=== PATIENT | male | born 1940 | race Caucasian/White ===

== ENCOUNTER 2017-08-01 13:23 | Inpatient (IN) | payer MEDICARE, OTHER ==
[2017-08-01 13:46] LABS: Glucose,Whole Blood 132 mg/dL (75-99)
[2017-08-01] MEDS ORDERED: SODIUM CHLORIDE 0.9% 1,000 ML IV ONE (13:57)
--- NOTE | 2017-08-01 14:00 | ED ---
General Adult HPI - General Chief complaint: Altered Mental Status Stated complaint: trouble walking/altered Time Seen by Provider: 08/01/17 13:36 Source: patient, family, RN notes reviewed Mode of arrival: wheelchair Limitations: no limitations - History of Present Illness Initial comments: Patient is a pleasant 77-year-old male presenting to the emergency department with change in mental status. Onset of symptoms was yesterday. Patient has had episodes of decreased responsiveness. Patient has been confused. Family states at times have noticed left facial droop however none at this time. Patient had difficulty using his utensils for dinner as well as with breakfast this morning. - Related Data Home Medications Medication Instructions Recorded Confirmed Aspirin 325 mg PO DAILY 08/01/17 08/01/17 Folic Acid 1 mg PO DAILY 08/01/17 08/01/17 Lipase/Protease/Amylase [Creon Dr 1 cap PO TID 08/01/17 08/01/17 24,000 Units Capsule] Meloxicam [Mobic] 7.5 mg PO DAILY 08/01/17 08/01/17 Multivitamins, Thera [Multivitamin 1 tab PO DAILY 08/01/17 08/01/17 (formulary)] [place]-3/Dha/Epa/Fish Oil [Fish Oil 1 cap PO DAILY 08/01/17 08/01/17 500 mg Softgel] Allergies Allergy/AdvReac Type Severity Reaction Status Date / Time No Known Allergies Allergy Verified 08/01/17 15:02 Review of Systems ROS Statement: Those systems with pertinent positive or pertinent negative responses have been documented in the HPI. ROS Other: All systems not noted in ROS Statement are negative. Constitutional: Denies: fever Eyes: Denies: eye pain ENT: Denies: ear pain Respiratory: Denies: cough, dyspnea Cardiovascular: Denies: chest pain Endocrine: Denies: fatigue Gastrointestinal: Denies: abdominal pain Genitourinary: Denies: dysuria Musculoskeletal: Denies: back pain Skin: Denies: rash Neurological: Reports: confusion. Denies: headache, weakness Past Medical History Past Medical History: Osteoarthritis (OA) Additional Past Medical History / Comment(s): pancreas disorder History of Any Multi-Drug Resistant Organisms: None Reported Past Surgical History: Hernia Repair Additional Past Surgical History / Comment(s): toe amputation Past Psychological History: No Psychological Hx Reported Smoking Status: Former smoker Past Alcohol Use History: Rare Past Drug Use History: None Reported General Exam Limitations: no limitations General appearance: alert, in no apparent distress Head exam: Present: atraumatic Eye exam: Present: normal appearance, PERRL ENT exam: Present: normal oropharynx Neck exam: Present: normal inspection Respiratory exam: Present: normal lung sounds bilaterally Cardiovascular Exam: Present: regular rate, normal rhythm GI/Abdominal exam: Present: soft. Absent: tenderness Extremities exam: Present: normal inspection. Absent: pedal edema, calf tenderness Neurological exam: Present: alert, CN II-XII intact. Absent: motor sensory deficit Expanded Patient oriented to: Present: person, place. Absent: time (Oriented to year but not month) Speech: Present: fluid speech Cranial nerves: EOM's Intact: Normal, Facial Sensation: Normal Sensory exam: Upper Extremity Light Touch: Normal, Lower Extremity Light Touch: Normal Motor strength exam: RUE: 5, LUE: 5, RLE: 5, LLE: 5 Psychiatric exam: Present: normal affect, normal mood Skin exam: Present: normal color Course Vital Signs 08/01/17 13:24 Temperature 99.1 F Pulse Rate 69 Respiratory 16 Rate Blood Pressure 193/82 O2 Sat by Pulse 96 Oximetry EKG Findings - EKG Comments: EKG Findings:: Sinus rhythm 76. Premature atrial complex present. UT 140. QRS 86. QT 376. QTc 423. Left axis. Normal QRS. No acute ST change. Medical Decision Making - Medical Decision Making Patient reevaluated and resting comfortably in bed. Patient and family were updated on results and plan. Patient does have history of those systems with exposure. Case was discussed in detail with Dr. Joshi, who will admit for kumar Saldana. He does agree with computed tomography scan. He request consults with Dr. Sena from pulmonary and neurology. Normal saline 100. - Lab Data Result diagrams: 08/01/17 13:42 08/01/17 13:42 Lab Results 08/01/17 08/01/17 08/01/17 Range/Units 13:42 13:42 13:42 WBC 7.4 (3.8-10.6) k/uL RBC 4.38 (4.30-5.90) m/uL Hgb 13.2 (13.0-17.5) gm/dL Hct 36.5 L (39.0-53.0) % MCV 83.4 (80.0-100.0) fL MCH 30.1 (25.0-35.0) pg MCHC 36.1 (31.0-37.0) g/dL RDW 14.4 (11.5-15.5) % Plt Count 331 (150-450) k/uL Neutrophils % 67 % Lymphocytes % 23 % Monocytes % 7 % Eosinophils % 1 % Basophils % 0 % Neutrophils # 4.9 (1.3-7.7) k/uL Lymphocytes # 1.7 (1.0-4.8) k/uL Monocytes # 0.5 (0-1.0) k/uL Eosinophils # 0.1 (0-0.7) k/uL Basophils # 0.0 (0-0.2) k/uL PT (9.0-12.0) sec INR (<1.2) APTT (22.0-30.0) sec Sodium 124 L (137-145) mmol/L Potassium 4.8 (3.5-5.1) mmol/L Chloride 89 L (98-107) mmol/L Carbon Dioxide 22 (22-30) mmol/L Anion Gap 13 mmol/L BUN 17 (9-20) mg/dL Creatinine 0.70 (0.66-1.25) mg/dL Est GFR (MDRD) Af Amer >60 (>60 ml/min/1.73 sqM) Est GFR (MDRD) Non-Af >60 (>60 ml/min/1.73 sqM) Glucose 125 H (74-99) mg/dL POC Glucose (mg/dL) (75-99) mg/dL POC Glu Store Merchandiser ID Calcium 9.4 (8.4-10.2) mg/dL Total Bilirubin 0.7 (0.2-1.3) mg/dL AST 69 H (17-59) U/L ALT 46 (21-72) U/L Alkaline Phosphatase 112 (38-126) U/L Total Creatine Kinase 142 (55-170) U/L CK-MB (CK-2) 11.4 H* (0.0-2.4) ng/mL CK-MB (CK-2) Rel Index 8.0 Troponin I <0.012 (0.000-0.034) ng/mL Total Protein 7.3 (6.3-8.2) g/dL Albumin 4.2 (3.5-5.0) g/dL 08/01/17 08/01/17 Range/Units 13:42 13:44 WBC (3.8-10.6) k/uL RBC (4.30-5.90) m/uL Hgb (13.0-17.5) gm/dL Hct (39.0-53.0) % MCV (80.0-100.0) fL MCH (25.0-35.0) pg MCHC (31.0-37.0) g/dL RDW (11.5-15.5) % Plt Count (150-450) k/uL Neutrophils % % Lymphocytes % % Monocytes % % Eosinophils % % Basophils % % Neutrophils # (1.3-7.7) k/uL Lymphocytes # (1.0-4.8) k/uL Monocytes # (0-1.0) k/uL Eosinophils # (0-0.7) k/uL Basophils # (0-0.2) k/uL PT 10.5 (9.0-12.0) sec INR 1.0 (<1.2) APTT 23.7 (22.0-30.0) sec Sodium (137-145) mmol/L Potassium (3.5-5.1) mmol/L Chloride (98-107) mmol/L Carbon Dioxide (22-30) mmol/L Anion Gap mmol/L BUN (9-20) mg/dL Creatinine (0.66-1.25) mg/dL Est GFR (MDRD) Af Amer (>60 ml/min/1.73 sqM) Est GFR (MDRD) Non-Af (>60 ml/min/1.73 sqM) Glucose (74-99) mg/dL POC Glucose (mg/dL) 132 H (75-99) mg/dL POC Glu Store Merchandiser ID Huma Lopez Calcium (8.4-10.2) mg/dL Total Bilirubin (0.2-1.3) mg/dL AST (17-59) U/L ALT (21-72) U/L Alkaline Phosphatase (38-126) U/L Total Creatine Kinase (55-170) U/L CK-MB (CK-2) (0.0-2.4) ng/mL CK-MB (CK-2) Rel Index Troponin I (0.000-0.034) ng/mL Total Protein (6.3-8.2) g/dL Albumin (3.5-5.0) g/dL - Radiology Data Radiology results: report reviewed (Computed tomography scan the brain shows atrophy. Sinus disease.), image reviewed (Chest x-ray shows pleural based densities right upper outer lung field.) Disposition Clinical Impression: Hyponatremia, Altered mental status Disposition: ADMITTED IP TO THIS HOSP Condition: Serious Referrals: Sotrm Calvin MD [Primary Care Provider] - 1-2 days Decision Time: 15:37
[2017-08-01 14:08] LABS: Basophils % (A) 0 %; CH 29.1; Eosinophils # (A) 0.1 k/uL (0-0.7); Eosinophils % (A) 1 %; HCT 36.5 % (39.0-53.0); HDW 2.61; HGB 13.2 gm/dL (13.0-17.5); Luc # (Auto) 0.16; Luc % (Auto) 2; Lymphocytes # (A) 1.7 k/uL (1.0-4.8); Lymphocytes % (A) 23 %; MCH 30.1 pg (25.0-35.0); MCHC 36.1 g/dL (31.0-37.0); MCV 83.4 fL (80.0-100.0); Mean Platelet Volume 6.2; Monocytes # (A) 0.5 k/uL (0-1.0); Monocytes % (A) 7 %; Neutrophils # (A) 4.9 k/uL (1.3-7.7); Neutrophils % (A) 67 %; RBC 4.38 m/uL (4.30-5.90); RDW 14.4 % (11.5-15.5); WBC 7.4 k/uL (3.8-10.6); WBC (Perox) 7.21
[2017-08-01 14:17] LABS: Partial Thromboplastin Time 23.7 sec (22.0-30.0); Prothrombin Time 10.5 sec (9.0-12.0)
[2017-08-01 14:21] LABS: ALT 46 U/L (21-72); AST 69 U/L (17-59); Alkaline Phosphatase 112 U/L (38-126); Anion Gap 13 mmol/L; Blood Urea Nitrogen 17 mg/dL (9-20); Calcium 9.4 mg/dL (8.4-10.2); Carbon Dioxide 22 mmol/L (22-30); Chloride 89 mmol/L (98-107); Glucose 125 mg/dL (74-99); Non-African American GFR(MDRD) >60 (>60 ml/min/1.73 sqM); Potassium 4.8 mmol/L (3.5-5.1); Sodium 124 mmol/L (137-145); Total Bilirubin 0.7 mg/dL (0.2-1.3); Total Protein 7.3 g/dL (6.3-8.2)
[2017-08-01 14:31] LABS: Creatine Kinase 142 U/L (55-170)
--- NOTE | 2017-08-01 14:41 | CT ---
EXAMINATION TYPE: CT brain wo con DATE OF EXAM: 08/01/2017 COMPARISON: NONE INDICATION: Patient shows signs of altered mental status. DLP: 1064 mGycm, Automated exposure control for dose reduction was used. CONTRAST: None CT of the brain is performed utilizing 3 mm thick sections through the posterior fossa and 3 mm thick sections through the remaining calvarium. Study is performed within 24 hours of arrival to the hosp ital. No abnormal hyperdensity is present to suggest an acute intracranial hemorrhage. No mass lesion is evident. No acute infarcts are evident. Mild periventricular white matter hypodensity is present, likely on th e basis of chronic white matter ischemic changes Ventricles and sulci are prominent for the patient age. Mucosal thickening is through anterior mid ethmoid air cells. Frontal sinuses are opacified. Sphenoid sinuses are clear. Maxillary sinuses are out of the [id number]. Mastoid air cells are clear IMPRESSIONS: 1. Atrophy. 2. Paranasal sinus disease discussed above
[2017-08-01 14:44] LABS: Troponin I <0.012 ng/mL (0.000-0.034)
[2017-08-01 14:46] LABS: Creatine Kinase MB 11.4 ng/mL (0.0-2.4)
--- NOTE | 2017-08-01 14:56 | XR ---
EXAMINATION TYPE: XR chest 2V DATE OF EXAM: 08/01/2017 COMPARISON: NONE INDICATION: Altered mental status TECHNIQUE: Frontal and lateral views of the chest are obtained. FINDINGS: The heart size is normal. The pulmonary vasculature is normal. There are pleural nodularities in the right upper outer lung field measuring 5.1 and 2.[address] chest is recommended for additional evaluation.. IMPRESSION: 1. Pleural-based densities in the right upper outer lung field. This could be pleural-based nodules o r fluid collections. CT of the chest is recommended. Neoplasm is not excluded at this time.
[2017-08-01] MEDS ORDERED: NALOXONE 0.4 MG/ML 1 ML VIAL IV PRN (15:37)
[2017-08-01] MEDS ORDERED: RX INFO: IV CONTRAST WAS GIVEN 1 EACH MISC MISCELLANE PRN (15:39)
[2017-08-01] MEDS ORDERED: amLODIPine 2.5 MG TAB PO STA (16:17)
[2017-08-01] MEDS: SODIUM CHLORIDE 0.9% 1,000 ML IV SCH (16:31)
--- NOTE | 2017-08-01 16:42 | CT ---
EXAMINATION TYPE: CT chest w con DATE OF EXAM: 08/01/2017 COMPARISON: Chest x-ray 08/01/2017 HISTORY: Patient has no chest complaints at time of study. Follow up to CXR done today. CT DLP: 319.9 mGycm, Automated exposure control for dose reduction was used. CONTRAST: Performed injected with 100 mL of Omnipaque 300. TECHNIQUE: Axial images were obtained at 5 mm thick sections. Reconstructed images are reviewed on [employer] computer in the coronal plane. FINDINGS: Portion of the thyroid visualized is normal. Adjacent to the right lobe thyroid is a 3.0 cm lymph node which may has some compression and displacement of the jugular vein.. A superior mediasti nal lymph node is present measuring 1.9 cm. There is an enlarged lymph node or mass in the pretrachea l space measuring 3.0 x 4.1 cm. Image 19 series 3. Mediastinal shotty lymph nodes are present adjacen t to the aortic arch. A right suprahilar lymph node measures 1.9 cm. Enlarged right axillary lymph no cee are present. Corresponding to the mass is identified on the chest x-ray are large intraparenchymal nodular densiti es. On lung windows these measure 3.2 x 2.7 cm, series 4 image 20 and 4.6 x 4.8 cm, series 4 image 14 . A metastatic lesion should be considered. The ascending aorta diameter at the level of the main pulmonary artery is 3.6 cm. The main pulmonary artery diameter at the bifurcation is 3.4 cm. Coronary artery calcification is noted. Limited CT sections are obtained through the upper abdomen. There is a cyst on the lateral posterior mid right kidney measuring 4.1 cm. The left adrenal gland is thickened at 2.8 cm. The right adrenal g land has a nodule along the posterior medial tip measuring 1.9 cm. These areas are suspicious for met astatic disease. Calcified granuloma within the spleen. IMPRESSIONS: 1. Two right apical parenchymal lesions extending to the pleural margins suspicious for neoplasm. 2. Multiple enlarged mediastinal lymph nodes including pretracheal space, right suprahilar, superior mediastinal lymph nodes. Additional enlarged lymphadenopathy is within the right axillary region and right supraclavicular region. 3. Workup for suspected metastatic lesions is recommended. Primary is unclear based on this study.
[2017-08-01] MEDS: LOSARTAN 50 MG TAB PO SCH (21:01)
[2017-08-01] MEDS: LIPASE 5,000/PROTEASE 17,000/AMYLASE 27,0000 PO SCH (21:01)
[2017-08-01 21:23] LABS: Appearance,Urine Clear (Clear); Bilirubin,Urine Negative (Negative); Glucose,Urine (UA) Negative (Negative); Ketones,Urine 1+ (Negative); Leukocyte Esterase,Urine Negative (Negative); Nitrite,Urine Negative (Negative); PH, Urine 6.5 (5.0-8.0); Particle Count 747; Protein,Urine Negative (Negative); RBC,Urine 3 /hpf (0-5); Specific Gravity,Urine 1.033 (1.001-1.035); UA Billing (MACRO vs. MICRO) MICRO; Urobilinogen,Urine <2.0 mg/dL (<2.0); WBC,Urine 1 /hpf (0-5)
[2017-08-01 21:48] LABS: Potassium,Urine Random 28.5 mmol/L
[2017-08-02] MEDS: SODIUM CHLORIDE 0.9% 1,000 ML IV SCH ×2 (05:58→12:33)
[2017-08-02 06:12] LABS: Anion Gap 10 mmol/L; Blood Urea Nitrogen 12 mg/dL (9-20); Calcium 9.3 mg/dL (8.4-10.2); Carbon Dioxide 21 mmol/L (22-30); Chloride 95 mmol/L (98-107); Glucose 118 mg/dL (74-99); Non-African American GFR(MDRD) >60 (>60 ml/min/1.73 sqM); Potassium 4.2 mmol/L (3.5-5.1); Sodium 126 mmol/L (137-145)
[2017-08-02] MEDS: LOSARTAN 50 MG TAB PO SCH (08:57)
[2017-08-02] MEDS: LIPASE 5,000/PROTEASE 17,000/AMYLASE 27,0000 PO SCH ×3 (08:58→20:39)
[2017-08-02] MEDS ORDERED: NON-FORMULARY DRUG (Omega-3/Dha/Epa/Fish Oil [Fish Oil 500 Mg Softgel] 1 CAP) PO SCH (09:00)
[2017-08-02] MEDS ORDERED: ASPIRIN 325 MG TAB PO SCH (09:00)
[2017-08-02] MEDS: FOLIC ACID 1 MG TAB PO SCH (12:32)
[2017-08-02] MEDS: hydrALAZINE HCL 20 MG/ML 1 ML VIAL IVP PRN (12:32)
[2017-08-02] MEDS: MULTIVITAMINS, THERA 1 EACH TAB PO SCH (12:32)
--- NOTE | 2017-08-02 13:51 | P.HPIM ---
History of Present Illness H&P Date: 08/02/17 Chief Complaint: Mental status change This is a 77-year-old male patient of Dr. Storm Calvin with a past medical history of osteoarthritis, atraumatic insufficiency. Patient has history that he was walking across a parking lot and suddenly blacked out. Patient denies any chest pain or abdominal pain. He denies any dysuria. No diarrhea. He denies any injury or headache when he fell. He states his appetite has been okay. He denies any weight loss. Patient is a poor historian and is noted that this was not noted in the ER report. Patient presented to [facility] emergency center due to change in mental status that started Tuesday. Patient apparently had decreased episodes of responsiveness and confusion. Family noticed a left facial droop at some point but none was present at the time of presentation. Patient had difficulty using his utensils to eat his dinner as well as breakfast yesterday morning. EKG was in normal sinus rhythm with no acute ST changes. White count was normal. Sodium was down to 124. Troponin was negative and blood sugar was 132. Patient underwent CAT scan of the brain that showed atrophy and paranasal sinus disease. CAT scan of the chest showed 2 right apical parenchymal lesions extending to the pleural margin suspicious for neoplasm. Multiple enlarged mediastinal lymph nodes and additional lymphadenopathy in the right axilla region and right supraclavicular lesion. Workup for suspected metastatic lesions as recommended. Patient was started on IV fluids 0.9 normal saline at 100 mL per hour and admitted to the selective care unit. Consults in place for neurology and Dr. CHERELLE Sena. Case was discussed with Dr. CHERELLE Sena and radiology. Patient will undergo 18 right neck mass biopsy tomorrow. Lovenox placed on hold. Nephrology consult has also been added for hyponatremia. Review of Systems All systems: negative Constitutional: Denies anorexia, Denies chills, Denies fever, Denies poor appetite, Denies sweats, Denies weight loss Eyes: denies blurred vision, denies pain Ears, nose, mouth and throat: Denies headache, Denies sore throat Cardiovascular: Reports syncope, Denies chest pain, Denies decreased exercise tolerance, Denies dyspnea on exertion, Denies edema, Denies leg edema, Denies lightheadedness, Denies shortness of breath Respiratory: Denies cough, Denies cough with sputum, Denies dyspnea, Denies excessive sputum, Denies hemoptysis, Denies home oxygen, Denies wheezing Gastrointestinal: Denies abdominal pain, Denies diarrhea, Denies nausea, Denies vomiting Genitourinary: Denies dysuria Musculoskeletal: Denies myalgias Integumentary: Denies pruritus, Denies rash Neurological: Reports change in mentation, Reports confusion, Denies numbness, Denies weakness Psychiatric: Denies anxiety, Denies depression Endocrine: Denies fatigue, Denies weight change Past Medical History Past Medical History: Osteoarthritis (OA) Additional Past Medical History / Comment(s): pancreatic insufficiency History of Any Multi-Drug Resistant Organisms: None Reported Past Surgical History: Hernia Repair Additional Past Surgical History / Comment(s): Third left toe amputated many years ago for infection. Past Psychological History: No Psychological Hx Reported Smoking Status: Former smoker Past Alcohol Use History: Rare Additional Past Alcohol Use History / Comment(s): Quit smoking one year ago. He was smoking 1 or more ppd and sometimes pipe. Possible alcohol abuse in the remote past. Rare intake at this time. He lives at home with his . He does not have ambulatory devices, oxygen per nebulizer at home. Past Drug Use History: None Reported - Past Family History Father Additional Family Medical History / Comment(s): Father at age 63 from a myocardial infarction. Mother Additional Family Medical History / Comment(s): Mother in her 60s and patient does not know her medical history or cause of . Brother(s) Additional Family Medical History / Comment(s): Patient does not have any brothers or sisters. Patient's one daughter and 4 sons with no major medical problems. Medications and Allergies Home Medications Medication Instructions Recorded Confirmed Type Aspirin 325 mg PO DAILY 08/01/17 08/01/17 History Folic Acid 1 mg PO DAILY 08/01/17 08/01/17 History Lipase/Protease/Amylase [Creon Dr 1 cap PO TID 08/01/17 08/01/17 History 24,000 Units Capsule] Meloxicam [Mobic] 7.5 mg PO DAILY 08/01/17 08/01/17 History Multivitamins, Thera [Multivitamin 1 tab PO DAILY 08/01/17 08/01/17 History (formulary)] [place]-3/Dha/Epa/Fish Oil [Fish Oil 1 cap PO DAILY 08/01/17 08/01/17 History 500 mg Softgel] Allergies Allergy/AdvReac Type Severity Reaction Status Date / Time gluten Allergy Diarrhea Verified 08/01/17 16:58 Physical Exam Vitals: Vital Signs Temp Pulse Pulse Resp BP BP BP 08/02/17 08:55 98.3 F 68 16 167/75 08/02/17 08:40 08/02/17 04:00 72 16 08/02/17 03:38 97.0 F L 72 16 164/79 08/02/17 00:00 97.4 F L 74 16 140/79 08/01/17 20:00 97.1 F L 72 17 218/97 171/78 08/01/17 18:33 98.2 F 75 18 166/77 08/01/17 16:49 97.8 F 75 18 185/98 08/01/17 16:26 185/98 08/01/17 16:09 97.8 F 75 18 186/102 08/01/17 15:59 75 18 172/99 08/01/17 13:24 99.1 F 69 16 193/82 Pulse Ox 08/02/17 08:55 98 08/02/17 08:40 98 08/02/17 04:00 08/02/17 03:38 96 08/02/17 00:00 95 08/01/17 20:00 96 08/01/17 18:33 95 08/01/17 16:49 96 08/01/17 16:26 08/01/17 16:09 96 08/01/17 15:59 98 08/01/17 13:24 96 Intake and Output 08/01/17 08/02/17 08/02/17 22:59 06:59 14:59 Intake Total 100 240 Output Total 650 300 Balance -550 -300 240 Intake: Oral 100 240 Output: Urine 650 300 Other: Voiding Method Toilet Toilet Urinal Urinal # Voids 1 # Bowel Movements 0 Weight 71.1 kg 69.5 kg Gen: This is a 77-year-old male sitting up in a chair at bedside and appears to be in no acute distress. HEENT: Head is atraumatic, normocephalic. Pupils equal, round. Sclerae is anicteric. NECK: Supple. No JVD. No lymphadenopathy. No thyromegaly. LUNGS: Clear to auscultation. No wheezes or rhonchi. No intercostal retractions. HEART: Regular rate and rhythm. No murmur. ABDOMEN: Soft. Bowel sounds are present. No masses. No tenderness. EXTREMITIES: No pedal edema. No calf tenderness. NEUROLOGICAL: Patient is awake, alert and oriented x2. Cranial nerves 2 through 12 are grossly intact. Results CBC & Chem 7: 08/01/17 13:42 08/02/17 05:45 Labs: Abnormal Lab Results - Last 24 Hours (Table) 08/01/17 08/01/17 08/01/17 Range/Units 13:42 13:42 13:42 Hct 36.5 L (39.0-53.0) % Sodium 124 L (137-145) mmol/L Chloride 89 L (98-107) mmol/L Carbon Dioxide (22-30) mmol/L Creatinine (0.66-1.25) mg/dL Glucose 125 H (74-99) mg/dL POC Glucose (mg/dL) (75-99) mg/dL Osmolality (280-301) mosm/kg AST 69 H (17-59) U/L CK-MB (CK-2) 11.4 H* (0.0-2.4) ng/mL Ur Specific [place] (1.001-1.035) Urine Ketones (Negative) Urine Blood (Negative) 08/01/17 08/01/17 08/01/17 Range/Units 13:42 13:44 15:40 Hct (39.0-53.0) % Sodium (137-145) mmol/L Chloride (98-107) mmol/L Carbon Dioxide (22-30) mmol/L Creatinine (0.66-1.25) mg/dL Glucose (74-99) mg/dL POC Glucose (mg/dL) 132 H (75-99) mg/dL Osmolality 259 L (280-301) mosm/kg AST (17-59) U/L CK-MB (CK-2) (0.0-2.4) ng/mL Ur Specific [place] 1.037 H (1.001-1.035) Urine Ketones (Negative) Urine Blood (Negative) 08/01/17 08/02/17 Range/Units 21:00 05:45 Hct (39.0-53.0) % Sodium 126 L (137-145) mmol/L Chloride 95 L (98-107) mmol/L Carbon Dioxide 21 L (22-30) mmol/L Creatinine 0.60 L (0.66-1.25) mg/dL Glucose 118 H (74-99) mg/dL POC Glucose (mg/dL) (75-99) mg/dL Osmolality (280-301) mosm/kg AST (17-59) U/L CK-MB (CK-2) (0.0-2.4) ng/mL Ur Specific [place] (1.001-1.035) Urine Ketones 1+ H (Negative) Urine Blood Trace H (Negative) Thrombosis Risk Factor Assmnt - DVT/VTE Prophylaxis DVT/VTE Prophylaxis: Pharmacologic Prophylaxis ordered - Choose All That Apply Any of the Below Risk Factors Present?: Yes Other Risk Factors: Yes Each Risk Factor Represents 3 Points: Age 75 years or older Thrombosis Risk Factor Assessment Total Risk Factor Score: 3 Thrombosis Risk Factor Assessment Level: Moderate Risk Assessment and Plan Plan: 1. Metabolic encephalopathy most likely secondary to hyponatremia presenting with sodium of 124. Continue IV fluids 0.9 normal saline at 100 mL per hour. Continue to monitor sodium. Consult in place with neurology. Continue aspirin daily 2. Hyponatremia of unclear etiology possibly secondary to SIADH secondary to possible lung cancer. Continue as in #1. 3. Pleural lesions concern for neoplasm and metastatic disease. Consult with Dr. CHERELLE Sena. CAT scan guided right neck mass biopsy ordered. 4. New onset hypertension. Continue Cozaar 100 mg daily. Hydralazine as needed for blood pressure greater than 160. 5. Pancreatic insufficiency. Continue Zenpep, folic acid and multivitamin. 6. DVT prophylaxis. Lovenox will be started tomorrow after neck biopsy. 7. Gastric intestinal prophylaxis. Pepcid. Patient will be admitted to the hospital for a minimum of 2 night stay. Discharge plan: To be determined. PT and OT ordered Impression and plan of care have been directed as dictated by the signing physician. Aubree Monroe nurse practitioner acting as scribe for signing physician.
--- NOTE | 2017-08-02 14:02 | CONS ---
CONSULTATION Balbir De La Paz is a 77-year-old male, who presented to the ED at [facility] with mental status changes. He had been feeling dizzy, was pleasantly confused and subsequently came into the ED for further evaluation. A sodium was done at that time, it showed it to be a sodium of 124. He was admitted. Chest x-ray and CAT scan of the chest were done which showed evidence of 2 masses in the right upper lobe along with some right hilar adenopathy. Patient denies any fever, chills or rigors. Denies any hemoptysis, denies any wheezing. PAST MEDICAL HISTORY: Positive for left toe amputation due to infection, history of pancreatic insufficiency, history of osteoarthritis, no clear history of asthma, COPD or coronary artery disease. FAMILY HISTORY: Negative for cancer. SOCIAL HISTORY: Patient smoked a pack of cigarettes per day. He quit smoking 4 to 5 months ago. 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 REVIEW OF SYSTEMS: Noncontributory. Medications prior to admission were aspirin, folic acid, Creon, meloxicam, multivitamin and omega-3 fatty acids in the form of fish oil. PHYSICAL EXAMINATION: He was sitting in a chair. He was pleasantly confused. His blood pressure was 186/88, respiratory rate of 16, pulse rate of 70, temperature 98.3, O2 sat on room is 96%. HEENT reveals pupils that are equal. No jugular venous distention. Chest is clear. Cardiovascular system reveals an S1, S2. Abdomen is soft. There is no pedal edema. There is evidence of amputation of the toe to the left lower extremity. Sodium is 126, potassium 4.2, chloride 95, bicarb 21, BUN 12, creatinine 0.6, glucose 118. CT scan of the chest was personally reviewed. The images were reconstructed using virtual bronchoscopy software upon virtual bronchoscopy. There cee not seem to be any endobronchial lesions. There are multiple enlarged lymph nodes in the pretracheal space, right suprahilar and superior mediastinal. There is enlarged adenopathy in the right axillary region in the right supraclavicular area with evidence of metastatic disease in the right adrenal gland. There are two large intraparenchymal densities, one is 3.2 x 2.7 cm, the other 4.6 x 4.8, and they seemed to be pleural- based. IMPRESSION: 1. 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 2. Metabolic encephalopathy secondary to hyponatremia. 3. Lung masses with metastatic disease. Most likely secondary to lung cancer in somebody who has been exposed to asbestos. At this point in time from a pulmonary standpoint, would recommend having the patient evaluated by Oncology, keep him on relatively hypertonic saline, which in this case agree with his current IV fluids of normal saline. Control his blood pressure, set him up for a CT-guided needle biopsy off the lymph nodes or the mass. His prognosis guarded. He and his family were counseled regarding his condition and this approach. Depending on how he does, we shall make further changes to his care. I did discuss my thoughts with his physician, Dr. Juarez. HOMERO / MEHRAN: [id number] /
--- NOTE | 2017-08-02 15:39 | US ---
EXAMINATION TYPE: US discontinued FNA panel DATE OF EXAM: 08/02/2017 COMPARISON: CT scan 08/01/2017 HISTORY: Neck mass FINDINGS: Right sided solid neck masses: 1)4.6 x 2.8 x 2.7 cm 2) 2.1 x 2.4 x 1.5 cm 3)0.6 x 0.5 x 0.5 cm IMPRESSION: 1. There are 3 right-sided neck masses the largest measuring 4.6 cm compatible with adenopathy. Findi ngs are concordant with the CT abnormality.
[2017-08-02] MEDS ORDERED: SODIUM CHLORIDE 0.9% 1,000 ML IV SCH (15:45)
[2017-08-02] MEDS ORDERED: amLODIPine 5 MG TAB PO STA (16:28)
[2017-08-02] MEDS ORDERED: METOPROLOL TARTRATE 50 MG TAB PO STA (19:13)
[2017-08-02] MEDS ORDERED: HEPARIN SODIUM,PORCINE 5,000 UNIT/ML 1 ML VIAL IV ONE (19:42)
[2017-08-02] MEDS ORDERED: HEPARIN SODIUM,PORCINE 5,000 UNIT/ML 1 ML VIAL IV PRN (19:42)
[2017-08-02 20:22] LABS: Basophils % (A) 0 %; CH 29.1; CHCM 34.1; Eosinophils # (A) 0.2 k/uL (0-0.7); Eosinophils % (A) 2 %; HCT 38.7 % (39.0-53.0); HDW 2.56; HGB 13.3 gm/dL (13.0-17.5); Luc % (Auto) 2; Lymphocytes # (A) 1.9 k/uL (1.0-4.8); Lymphocytes % (A) 22 %; MCH 29.6 pg (25.0-35.0); MCHC 34.5 g/dL (31.0-37.0); MCV 85.8 fL (80.0-100.0); Mean Platelet Volume 6.2; Monocytes # (A) 0.7 k/uL (0-1.0); Monocytes % (A) 9 %; Neutrophils # (A) 5.3 k/uL (1.3-7.7); Neutrophils % (A) 64 %; RBC 4.51 m/uL (4.30-5.90); RDW 14.5 % (11.5-15.5); WBC 8.3 k/uL (3.8-10.6); WBC (Perox) 8.07
[2017-08-02 20:27] LABS: INR 1.1 (<1.2); Partial Thromboplastin Time 25.2 sec (22.0-30.0); Prothrombin Time 11.1 sec (9.0-12.0)
[2017-08-02] MEDS: HEPARIN SODIUM,PORCINE/D5W PMX 25,000 UNIT in DEXTROSE/WATER 1 500ML.BAG IV SCH (20:31)
--- NOTE | 2017-08-02 21:14 | CONS ---
CONSULTATION DATE OF CONSULTATION: 08/02/2017 REASON FOR CONSULT: Hyponatremia. HISTORY OF PRESENT ILLNESS: Patient is a 77-year-old male who was admitted to the hospital for change in mentation. He had episodes of decreased responsiveness per the family who brought him. He was noted to have a serum sodium of 124 mEq/L. We do not have any previous labs. The patient is maintained on normal saline. His repeat sodium was 126. He did have a chest CT which showed right lung apical lesions with mediastinal lymphadenopathy. The patient's mentation seems to have improved. There is no prior history of hyponatremia. He has not started any new medications recently. PAST MEDICAL HISTORY: 1. Hypertension. 2. Osteoarthritis. PAST SURGICAL HISTORY: 1. Hernia repair. 2. Third left toe amputation many years ago. SOCIAL HISTORY: Patient quit smoking about 3 years ago. No history of drug abuse. MEDICATIONS: Medications at home included: 1. Aspirin. 2. Mobic. 3. Multivitamin. 4. Fish oil. 5. Folic acid. ALLERGIES: ALLERGIES include GLUTEN. EXAMINATION: On examination, patient is comfortable, awake. He is not in any acute distress. Blood pressure is 157/75, heart rate 68 per minute. Patient is afebrile. EXAMINATION OF THE HEART: S1, S2. EXAMINATION OF LUNGS: Bilateral breath sounds are heard. ABDOMEN: Soft, non-tender. Examination of lower extremities shows no significant edema. EXTRACORPOREAL TECHNICIAN exam is grossly intact. LAB: Sodium 126, potassium 4.2, BUN 12, serum creatinine 0.6. Hemoglobin 13.2 g/dL. Calcium was 9.4. Urine osmolality was 422. ASSESSMENT: 1. Hyponatremia which is euvolemic, most likely secondary to SIADH. Patient is maintained on normal saline. I am afraid his sodium will drop. We will check a STAT sodium level now and then discontinue the saline if it is lower. Patient may need demeclocycline now with fluid restriction to maintain his sodium level, given the fact that he has an underlying lung mass and possibly underlying lung cancer. 2. Right lung lesions, currently being worked up. 3. Hypertension. Blood pressure is elevated. Patient is maintained on Cozaar, which we can continue. PLAN: Decrease IV fluids. Check STAT serum sodium. Will discontinue IV fluids if the serum sodium has dropped further. Patient may need to be started on demeclocycline to help with the SIADH. Thank you for this consultation. Will continue to follow the patient with you during his hospitalization. MMCHUCKIEL / IJN: [id number] /
--- NOTE | 2017-08-03 08:41 | P.CRDCN ---
History of Present Illness Consult date: 08/03/17 Consult reason: atrial fibrillation History of present illness: 77-year-old gentleman with history of hypertension is admitted to hospital with confusion. He has hyponatremia cervical lymph nodes. He developed atrial fibrillation while in the hospital for which cardiology had been consulted. Patient denies chest pain and difficulty in breathing but he is somewhat confused and a poor historian. There is no known history of atrial fibrillation. Denies coronary artery disease or congestive heart Patient is in atrial fibrillation with controlled ventricular rate. He is on a beta estella. He is on intravenous heparin. I will leave him on beta blockers for rate control and heparin for anticoagulation at this time we'll await the biopsy results. We will decide on long-term anticoagulation once we know whether he has metastatic cancer of not. Review of Systems ROS unobtainable: due to mental status (I reviewed the chart reviewed and the consultations other than the confusion there are no other pertinent symptoms) Past Medical History Past Medical History: Hypertension, Osteoarthritis (OA) Additional Past Medical History / Comment(s): pancreatic insufficiency History of Any Multi-Drug Resistant Organisms: None Reported Past Surgical History: Hernia Repair Additional Past Surgical History / Comment(s): Third left toe amputated many years ago for infection. Past Psychological History: No Psychological Hx Reported Smoking Status: Former smoker Past Alcohol Use History: Rare Additional Past Alcohol Use History / Comment(s): Quit smoking one year ago. He was smoking 1 or more ppd and sometimes pipe. Possible alcohol abuse in the remote past. Rare intake at this time. He lives at home with his . He does not have ambulatory devices, oxygen per nebulizer at home. Past Drug Use History: None Reported - Past Family History Father Additional Family Medical History / Comment(s): Father at age 63 from a myocardial infarction. Mother Additional Family Medical History / Comment(s): Mother in her 60s and patient does not know her medical history or cause of . Brother(s) Additional Family Medical History / Comment(s): Patient does not have any brothers or sisters. Patient's one daughter and 4 sons with no major medical problems. Medications and Allergies Home Medications Medication Instructions Recorded Confirmed Type Aspirin 325 mg PO DAILY 08/01/17 08/01/17 History Folic Acid 1 mg PO DAILY 08/01/17 08/01/17 History Lipase/Protease/Amylase [Creon Dr 1 cap PO TID 08/01/17 08/01/17 History 24,000 Units Capsule] Meloxicam [Mobic] 7.5 mg PO DAILY 08/01/17 08/01/17 History Multivitamins, Thera [Multivitamin 1 tab PO DAILY 08/01/17 08/01/17 History (formulary)] [place]-3/Dha/Epa/Fish Oil [Fish Oil 1 cap PO DAILY 08/01/17 08/01/17 History 500 mg Softgel] Allergies Allergy/AdvReac Type Severity Reaction Status Date / Time gluten Allergy Diarrhea Verified 08/01/17 16:58 Physical Exam Vitals: Vital Signs Temp Pulse Resp BP BP Pulse Ox 08/03/17 04:00 97 F L 85 18 137/76 93 L 08/02/17 23:45 98.6 F 92 18 124/78 95 08/02/17 20:00 96.9 F L 114 H 18 128/80 95 08/02/17 15:30 98 F 70 16 162/74 97 08/02/17 11:45 70 16 186/88 96 08/02/17 08:55 98.3 F 68 16 167/75 98 08/02/17 08:45 16 08/02/17 08:40 98 Intake and Output 08/02/17 08/03/17 08/03/17 22:59 06:59 14:59 Intake Total 1040 103.972 240 Output Total 300 700 Balance 740 -596.028 240 Intake: IV 800 Sodium Chloride 0.9% 1, 800 000 ml @ 50 mls/hr IV . Q20H MENG Rx#:[id number] Intake, IV Titration 103.972 Amount Heparin Sodium,Porcine/ 103.972 D5w Pmx 25,000 unit In Dextrose/Water 1 500ml. bag @ 12 UNITS/KG/HR 16. 68 mls/hr IV .Q24H MENG Rx #:[id number] Oral 240 240 Output: Urine 300 700 Other: Voiding Method Toilet Toilet Urinal Urinal # Voids 2 1 Weight 71.9 kg General: The patient is awake and alert, in no distress, and does not appear acutely ill. Skin: Skin is warm and dry and no rashes or lesions are noted. Eye: Pupils are equal, round and reactive to light, extra-ocular movements are intact; there is normal conjunctiva bilaterally. Ears, nose, mouth and throat: There are moist mucous membranes and no oral lesions. Neck: The neck is supple, there is no tenderness or JVD. Cardiovascular: [ irregular.][ No murmur, rub or gallop is appreciated.] Respiratory: Lungs are clear to auscultation, respirations are non-labored, breath sounds are equal. Gastrointestinal: Soft, non-distended, non-tender abdomen without masses or organomegaly noted. There is no rebound or guarding present. Bowel sounds are unremarkable. Back: There is no tenderness to palpation in the midline. There is no obvious deformity. Musculoskeletal: Normal ROM, no tenderness, There is no pedal edema. There is no calf tenderness or swelling. Extremities:[ No edema.] Vascular: [Femoral pulse is normal.][ Posterior tibial pulses are normal .][ Dorsalis pedis is palpable.] Neurological: appears confused Psychiatric: Cooperative, confused Results 08/02/17 20:08 08/02/17 15:51 Coagulation 08/02/17 08/03/17 Range/Units 20:08 01:30 PT 11.1 (9.0-12.0) sec APTT 25.2 32.3 H (22.0-30.0) sec CBC 08/02/17 Range/Units 20:08 WBC 8.3 (3.8-10.6) k/uL RBC 4.51 (4.30-5.90) m/uL Hgb 13.3 (13.0-17.5) gm/dL Hct 38.7 L (39.0-53.0) % Plt Count 348 (150-450) k/uL Comprehensive Metabolic Panel 08/02/17 Range/Units 15:51 Sodium 129 L (137-145) mmol/L Current Medications Generic Name Dose Route Start Last Admin Trade Name Freq PRN Reason Stop Dose Admin Amlodipine Besylate 5 mg 08/03/17 12:00 Norvasc PO DAILY@1200 MENG Lipase/Protease/Amylase 4 each 08/01/17 22:00 08/02/17 20:[address] 5,000 Units Capsule PO 4 each TID MENG Administration Famotidine 20 mg 08/03/17 09:00 Pepcid PO DAILY MENG Folic Acid 1 mg 08/02/17 12:00 08/02/17 12:32 Folic Acid PO 1 mg DAILY@1200 [facility] Administration Heparin Sodium (Porcine) 0 unit 08/02/17 19:42 Heparin IV PER PROTOCOL PRN Low PTT Protocol Hydralazine HCl 20 mg 08/01/17 20:32 08/02/17 12:32 Apresoline IVP 20 mg Q2HR PRN Administration Blood Pressure - High Sodium Chloride 1,000 mls @ 50 mls/hr 08/02/17 15:45 08/02/17 15:53 Saline 0.9% IV 50 mls/hr .Q20H MENG Administration Heparin Sodium/Dextrose 25,000 500 mls @ 16.68 mls/hr 08/02/17 19:45 02:45 unit/ IV Solution IV 15 units/kg/hr .Q24H MENG 20.85 mls/hr Protocol Titration 12 UNITS/KG/HR Losartan Potassium 100 mg 08/01/17 20:45 08/02/17 08:57 Cozaar PO 100 mg DAILY [facility] Administration Metoprolol Tartrate 50 mg 08/03/17 09:00 Lopressor PO BID [facility] Miscellaneous Information 1 each 08/01/17 15:39 Rx Info: Iv Contrast Was Given MISCELLANE 08/03/17 15:40 DAILY PRN Per Protocol Multivitamins 1 each 08/02/17 12:00 08/02/17 12:32 Theragran PO 1 each DAILY@1200 [facility] Administration Naloxone HCl 0.2 mg 08/01/17 15:37 Narcan IV Q2M PRN Opioid Reversal Intake and Output 08/02/17 08/03/17 08/03/17 22:59 06:59 14:59 Intake Total 1040 103.972 240 Output Total 300 700 Balance 740 -596.028 240 Intake: IV 800 Sodium Chloride 0.9% 1, 800 000 ml @ 50 mls/hr IV . Q20H MENG Rx#:[id number] Intake, IV Titration 103.972 Amount Heparin Sodium,Porcine/ 103.972 D5w Pmx 25,000 unit In Dextrose/Water 1 500ml. bag @ 12 UNITS/KG/HR 16. 68 mls/hr IV .Q24H MENG Rx #:[id number] Oral 240 240 Output: Urine 300 700 Other: Voiding Method Toilet Toilet Urinal Urinal # Voids 2 1 Weight 71.9 kg 08/02/17 20:08 08/02/17 15:51 EKG Interpretations (text) atrial fibrillation with nonspecific ST-T wave changes Assessment and Plan Plan: persistent atrial fibrillation Cervical lymphadenopathy rule out metastatic cancer I'm going to continue the patient on intravenous heparin and beta blockers. I' m going to continue to monitor him on telemetry. I'm going to obtain a 2-D echo to assess LV function.
[2017-08-03] MEDS ORDERED: ENOXAPARIN 40 MG/0.4 ML SYRINGE SQ SCH (09:00)
[2017-08-03] MEDS: FAMOTIDINE 20 MG TAB PO SCH (09:11)
[2017-08-03] MEDS: LIPASE 5,000/PROTEASE 17,000/AMYLASE 27,0000 PO SCH ×3 (09:11→19:45)
[2017-08-03] MEDS: METOPROLOL TARTRATE 50 MG TAB PO SCH ×2 (09:11→19:45)
[2017-08-03 09:51] LABS: Basophils % (A) 0 %; CH 29.3; CHCM 34.2; Eosinophils # (A) 0.2 k/uL (0-0.7); Eosinophils % (A) 2 %; HCT 36.3 % (39.0-53.0); HDW 2.53; HGB 12.3 gm/dL (13.0-17.5); Luc # (Auto) 0.19; Luc % (Auto) 3; Lymphocytes # (A) 2.3 k/uL (1.0-4.8); Lymphocytes % (A) 29 %; MCH 29.1 pg (25.0-35.0); MCHC 33.9 g/dL (31.0-37.0); MCV 85.9 fL (80.0-100.0); Mean Platelet Volume 6.4; Monocytes # (A) 0.5 k/uL (0-1.0); Monocytes % (A) 7 %; Neutrophils # (A) 4.6 k/uL (1.3-7.7); Neutrophils % (A) 59 %; RBC 4.22 m/uL (4.30-5.90); RDW 14.8 % (11.5-15.5); WBC 7.8 k/uL (3.8-10.6); WBC (Perox) 8.66
[2017-08-03 09:57] LABS: Anion Gap 9 mmol/L; Blood Urea Nitrogen 13 mg/dL (9-20); Calcium 8.6 mg/dL (8.4-10.2); Carbon Dioxide 22 mmol/L (22-30); Chloride 96 mmol/L (98-107); Glucose 160 mg/dL (74-99); Non-African American GFR(MDRD) >60 (>60 ml/min/1.73 sqM); Potassium 4.1 mmol/L (3.5-5.1); Sodium 127 mmol/L (137-145)
--- NOTE | 2017-08-03 10:23 | CONS ---
CONSULTATION DATE OF CONSULTATION: 08/02/2017 CHIEF COMPLAINT: Altered mental status. HISTORY OF PRESENT ILLNESS: Mr. De La Paz is a pleasant 77-year-old, male, who is being evaluated today on 08/02/2017 by the Neurology Service per the request of Dr. Randall Chambers for altered mental status. The patient was brought into [facility] Emergency Room after he was found to be confused by his family. The patient's symptoms started on Tuesday and has been gradually getting worse. In the emergency room, he was found to be disoriented. A CT scan of the brain was done, which showed no acute intracranial abnormalities. Generalized atrophy was seen. A chest x-ray was done, which showed evidence of lung mass. A CT of the chest was done which showed two lesions consistent with neoplasm and lymph node enlargements in the mediastinum. His CBC and urine drug screen and urinalysis were normal. His comprehensive metabolic profile showed hyponatremia at 124 and slightly elevated AST at 69. His cardiac enzymes were normal except for elevated CK-MB at 11.4. Pulmonology has been consulted. At the time of my evaluation, the patient is sitting up in his bed and appears to be in no acute distress. He is still somewhat disoriented. His exact baseline is unknown as no family members are available at the time of my evaluation. PAST MEDICAL HISTORY: Pancreatic insufficiency, osteoarthritis, history of hernia repair and orthopedic surgery. SOCIAL HISTORY: The patient is a former smoker. He quit smoking 1 year ago. He occasionally drinks alcohol. There is no history of any drug use. FAMILY HISTORY: Positive for heart disease. HOME MEDICATIONS: Reviewed in the chart. ALLERGIES: GLUTEN. REVIEW OF SYSTEMS: CONSTITUTIONAL: Positive for fatigue. EYES: Negative. ENT: Positive for chronic hearing loss. CARDIOVASCULAR: Negative. RESPIRATORY: Negative. NEUROLOGICAL: As mentioned above. He denies any lateralizing numbness or weakness. GASTROINTESTINAL: Negative. GENITOURINARY: Negative. PSYCHIATRIC: Negative. ENDOCRINE: Negative. MUSCULOSKELETAL: Positive for occasional joint pain. DERMATOLOGICAL: Negative. PHYSICAL EXAM: Vital signs show a temperature of 98.0, pulse 70, respirations 16, blood pressure 162/74. GENERAL APPEARANCE: The patient is a well-developed, elderly male who appears to be in no acute distress. HEENT: Normocephalic, atraumatic, no facial asymmetry is seen. NECK: Supple with no masses felt. CARDIOVASCULAR: Regular rate and rhythm. ABDOMEN: Nontender, nondistended. Extremities showed no edema or clubbing. NEUROLOGICAL EXAM: The patient is awake and oriented to person and year. He did not know that he is in the hospital. Strength is 4+/5 in bilateral lower extremities and 5- /5 in bilateral upper extremities. No lateralizing weakness is seen. Sensory exam was normal to light touch in all 4 extremities. No facial asymmetry is seen. Speech and language are normal. Mild postural tremors are seen. IMPRESSION: 1. Altered mental status. 2. Acute metabolic encephalopathy. 3. Hyponatremia. 4. Lung mass. RECOMMENDATION: The patient's exact baseline is unknown but he is still disoriented to place. He did have significant hyponatremia on admission, and this is likely causing the confusion. He does have evidence of two lesions in his right lung which is concerning for neoplasm. There is no evidence of any metastasis on CT scan of the brain. Pulmonology has been consulted. An EEG has been ordered. Continue monitoring his sodium levels. Prognosis is guarded. I will continue to follow with you. Further recommendations to follow. Thank you for allowing me to participate in the care of your patient. If you have any questions, please feel free to contact me. MMODL / IJN: [id number] /
--- NOTE | 2017-08-03 11:00 | P.PN ---
Subjective This is a 77-year-old male patient of Dr. Storm Calvin with a past medical history of osteoarthritis, atraumatic insufficiency. Patient has history that he was walking across a parking lot and suddenly blacked out. Patient denies any chest pain or abdominal pain. He denies any dysuria. No diarrhea. He denies any injury or headache when he fell. He states his appetite has been okay. He denies any weight loss. Patient is a poor historian and is noted that this was not noted in the ER report. Patient presented to [facility] emergency center due to change in mental status that started Tuesday. Patient apparently had decreased episodes of responsiveness and confusion. Family noticed a left facial droop at some point but none was present at the time of presentation. Patient had difficulty using his utensils to eat his dinner as well as breakfast yesterday morning. EKG was in normal sinus rhythm with no acute ST changes. White count was normal. Sodium was down to 124. Troponin was negative and blood sugar was 132. Patient underwent CAT scan of the brain that showed atrophy and paranasal sinus disease. CAT scan of the chest showed 2 right apical parenchymal lesions extending to the pleural margin suspicious for neoplasm. Multiple enlarged mediastinal lymph nodes and additional lymphadenopathy in the right axilla region and right supraclavicular lesion. Workup for suspected metastatic lesions as recommended. Patient was started on IV fluids 0.9 normal saline at 100 mL per hour and admitted to the selective care unit. Consults in place for neurology and Dr. CHERELLE Sena. Case was discussed with Dr. CHERELLE Sena and radiology. Patient will undergo 18 right neck mass biopsy tomorrow. Lovenox placed on hold. Nephrology consult has also been added for hyponatremia. 08/03: Patient had ultrasound of the neck that showed 3 right-sided neck masses and the largest measuring 4.6 cm compatible with adenopathy. His has agreed to biopsy today. Patient has been seen by Dr. Starr for euvolemic hyponatremia likely secondary to SIADH. IV fluids were decreased to 50cc/hr but sodium is lower to 127. IV fluids will be discontinued and fluid restriction of 1000cc /day started. Patient may require demeclcylomine as per Dr. Starr's recommendation. He was seen by Dr. Lazcano for atrial fibrillation. Patient is continued on heparin drip and echocardiogram ordered. Dr. Martínez evaluated patient and EEG ordered. Objective - Vital Signs Vital signs: Vital Signs Temp 97 F L 08/03/17 04:00 Pulse 85 08/03/17 04:00 Resp 18 08/03/17 04:00 BP 137/76 08/03/17 04:00 Pulse Ox 93 L 08/03/17 04:00 Intake & Output 08/02/17 08/03/17 08/03/17 18:59 06:59 18:59 Intake Total 1280 103.972 240 Output Total 1000 Balance 1280 -896.028 240 Weight 71.9 kg Intake: IV 800 Sodium Chloride 0.9% 1, 800 000 ml @ 50 mls/hr IV . Q20H [facility]ENG Rx#:[id number] Intake, IV Titration 103.972 Amount Heparin Sodium,Porcine/ 103.972 D5w Pmx 25,000 unit In Dextrose/Water 1 500ml. bag @ 12 UNITS/KG/HR 16. 68 mls/hr IV .Q24H MENG Rx #:[id number] Oral 480 240 Output: Urine 1000 Other: Voiding Method Toilet Toilet Urinal Urinal # Voids 2 1 - Exam Gen: This is a 77-year-old male sitting up in a chair at bedside and appears to be in no acute distress. HEENT: Head is atraumatic, normocephalic. Pupils equal, round. Sclerae is anicteric. NECK: Supple. No JVD. No lymphadenopathy. No thyromegaly. LUNGS: Clear to auscultation. No wheezes or rhonchi. No intercostal retractions. HEART: Regular rate and rhythm. No murmur. ABDOMEN: Soft. Bowel sounds are present. No masses. No tenderness. EXTREMITIES: No pedal edema. No calf tenderness. NEUROLOGICAL: Patient is awake, alert and oriented x2. Cranial nerves 2 through 12 are grossly intact. - Labs CBC & Chem 7: 08/03/17 08:53 08/03/17 08:53 Labs: Abnormal Lab Results - Last 24 Hours (Table) 08/02/17 08/02/17 08/03/17 Range/Units 15:51 20:08 01:30 Hct 38.7 L (39.0-53.0) % APTT 32.3 H (22.0-30.0) sec Sodium 129 L (137-145) mmol/L Assessment and Plan Plan: 1. Metabolic encephalopathy most likely secondary to hyponatremia presenting with sodium of 124. IV fluids discontinued and start fluid restriction of 1000cc/hr. Continue to monitor sodium. Consult in place with neurology. Continue aspirin daily 2. Hyponatremia of unclear etiology possibly secondary to SIADH secondary to possible lung cancer. Continue as in #1. 3. Pleural lesions concern for neoplasm and metastatic disease. Consult with Dr. CHERELLE Sena. CAT scan guided right neck mass biopsy ordered. 4. New onset hypertension. Continue Cozaar 100 mg daily. Hydralazine as needed for blood pressure greater than 160. 5. Pancreatic insufficiency. Continue Zenpep, folic acid and multivitamin. 6. DVT prophylaxis. Lovenox will be started tomorrow after neck biopsy. 7. Gastric intestinal prophylaxis. Pepcid. 8. History of asbestosis exposure. Patient will be admitted to the hospital for a minimum of 2 night stay. Discharge plan: To be determined. PT and OT ordered Impression and plan of care have been directed as dictated by the signing physician. Aubree Monroe nurse practitioner acting as scribe for signing physician.
[2017-08-03] MEDS: FOLIC ACID 1 MG TAB PO SCH (11:56)
[2017-08-03] MEDS: amLODIPine 5 MG TAB PO SCH (11:56)
[2017-08-03] MEDS: LOSARTAN 50 MG TAB PO SCH (11:56)
[2017-08-03] MEDS: IPRATROPIUM-ALBUTEROL 3 ML NEB INHALATION SCH ×3 (14:05→20:21)
[2017-08-03] MEDS: MULTIVITAMINS, THERA 1 EACH TAB PO SCH (14:38)
--- NOTE | 2017-08-03 15:13 | P.PN ---
Subjective Principal diagnosis: Altered mental status This 77-year-old male continuing to be evaluated by the neurology service for altered mental status. He was found to be confused by his family. A CT showed no acute intracranial abnormalities. Chest x-ray did show evidence of lung mass. CT of the chest showed 2 lesions and lymph node enlargement in the mediastinum. He is now being followed by oncology and pulmonology. At the time my exam he is resting comfortably in bed in no acute distress. Objective - Vital Signs Vital signs: Vital Signs Temp 96 F L 08/03/17 11:45 Pulse 61 08/03/17 13:12 Resp 20 08/03/17 13:12 BP 161/76 08/03/17 13:12 Pulse Ox 98 08/03/17 12:44 Intake & Output 08/02/17 08/03/17 08/03/17 18:59 06:59 18:59 Intake Total 1280 103.972 592.9 Output Total 1000 Balance 1280 -896.028 592.9 Weight 71.9 kg Intake: IV 800 200 Sodium Chloride 0.9% 1, 800 200 000 ml @ 50 mls/hr IV . Q20H MENG Rx#:[id number] Intake, IV Titration 103.972 152.9 Amount Heparin Sodium,Porcine/ 103.972 152.9 D5w Pmx 25,000 unit In Dextrose/Water 1 500ml. bag @ 12 UNITS/KG/HR 16. 68 mls/hr IV .Q24H MENG Rx #:[id number] Oral 480 240 Output: Urine 1000 Other: Voiding Method Toilet Toilet Toilet Urinal Urinal Urinal # Voids 2 1 - Constitutional General appearance: Present: average body habitus, no acute distress - EENT Eyes: Present: PERRLA. Absent: abnormal pupil, ptosis - Neck Neck: Present: normal ROM. Absent: rigidity - Respiratory Respiratory: negative: prolonged expiration, prolonged inspiration - Cardiovascular Rhythm: regular - Gastrointestinal General gastrointestinal: Absent: distended - Neurologic Neurologic Comment(s): Patient is resting comfortably and sleeping in bed. He is quite drowsy and pretty much noncooperative with questioning. There is no facial asymmetry. There is no obvious lateralizing weakness. No tremors or seizure-like activities are seen. - Labs CBC & Chem 7: 08/03/17 08:53 08/03/17 08:53 Labs: Abnormal Lab Results - Last 24 Hours (Table) 08/02/17 08/02/17 08/03/17 Range/Units 15:51 20:08 01:30 RBC (4.30-5.90) m/uL Hgb (13.0-17.5) gm/dL Hct 38.7 L (39.0-53.0) % APTT 32.3 H (22.0-30.0) sec Sodium 129 L (137-145) mmol/L Chloride (98-107) mmol/L Glucose (74-99) mg/dL 08/03/17 08/03/17 08/03/17 Range/Units 08:53 08:53 08:53 RBC 4.22 L (4.30-5.90) m/uL Hgb 12.3 L (13.0-17.5) gm/dL Hct 36.3 L (39.0-53.0) % APTT 36.8 H (22.0-30.0) sec Sodium 127 L (137-145) mmol/L Chloride 96 L (98-107) mmol/L Glucose 160 H (74-99) mg/dL Assessment and Plan (1) Acute metabolic encephalopathy Status: Acute (2) Lung mass Status: Acute (3) Altered mental status Status: Acute (4) Hyponatremia Status: Acute Plan: Again his hyponatremia can be a likely cause of his altered mental status. Pulmonology will continue to follow for his lung masses. EEG has been performed and we are waiting the data for interpretation. Continue monitoring and correcting sodium levels. Continue neurological checks. We will continue to follow. I have performed a history and physical on the above patient. I have reviewed the above note, and agree.
--- NOTE | 2017-08-03 15:16 | US ---
ULTRASOUND GUIDED FNA AND CORE BIOPSY RIGHT NECK MASS BIOPSY: CLINICAL HISTORY: Right neck mass FINDINGS: The procedure was explained to the patient. The risks, complications, benefits and alternatives were discussed and any questions were answered. Informed consent was obtained. Patient was placed supin e on the ultrasound table and prepped and draped in the usual sterile fashion. Utilizing a 25 gauge needle, three passes were made into the right neck mass. 18-gauge single core sample also obtained. Patient was stable throughout the procedure. Pathology is pending. All elements of maximal barrier and sterile technique were utilized. IMPRESSION: 1. Successful ultrasound guided FNA and core biopsy right neck mass.
[2017-08-03 20:01] VITALS: RESP 18
--- NOTE | 2017-08-03 21:08 | P.CONS ---
History of Present Illness - Reason for Consult Consult date: 08/03/17 Lung mass, adenopathy, hyponatremia - History of Present Illness The patient is 77-year-old gentleman, with overall well controlled medical problems. He has known short-term memory loss, but for about 5 days, prior to this admission his family had noted a definite change in his mentation. The patient appeared to be much less responsive, forgetful, and confused. On the day of admission, he suddenly passed out while walking across the parking lot. He was brought into the emergency room, her labs showed a low sodium in the low [address] of the brain without contrast was negative. Chest x-ray showed abnormal pleural-based densities on the right side. He therefore had a computed tomography scan of the chest, which showed evidence of mediastinal adenopathy, as well as at least 2 peripheral lung densities. In addition, 2.8 cm left adrenal nodule and 1.9 cm right adrenal nodule were also noted. The patient was therefore admitted for further management. Computed tomography scan is shown evidence of superior mediastinal adenopathy. Ultrasound of the neck confirmed presence of nodes in the right medial supraclavicular area. Patient is status post ultrasound-guided biopsy of the same. Consult was placed for further evaluation and recommendations Review of Systems Constitutional: Reports fatigue, Reports weakness Eyes: denies blurred vision, denies pain Ears: deny: decreased hearing, ear discharge, earache, tinnitus Ears, nose, mouth and throat: Denies headache, Denies sore throat Cardiovascular: Reports dyspnea on exertion (At baseline, could walk about 300 feet), Denies chest pain, Denies shortness of breath Respiratory: Reports dyspnea Gastrointestinal: Reports diarrhea (History of chronic pancreatitis, due to alcohol, as well as celiac disease. Symptoms well controlled on gluten-free diet), Denies abdominal pain, Denies nausea, Denies vomiting Genitourinary: Reports as per HPI (No specific complaints) Musculoskeletal: Reports muscle weakness Integumentary: Denies pruritus, Denies rash Neurological: Reports change in mentation, Reports memory loss (Chronic short- term memory loss), Reports seizures, Reports syncope Psychiatric: Reports confusion, Reports difficulty concentrating, Reports memory loss Endocrine: Reports fatigue Hematologic/Lymphatic: Reports as per HPI, Reports lymphadenopathy Past Medical History Past Medical History: Hypertension, Osteoarthritis (OA) Additional Past Medical History / Comment(s): pancreatic insufficiency History of Any Multi-Drug Resistant Organisms: None Reported Past Surgical History: Hernia Repair Additional Past Surgical History / Comment(s): Third left toe amputated many years ago for infection. Past Psychological History: No Psychological Hx Reported Smoking Status: Former smoker Past Alcohol Use History: Rare Additional Past Alcohol Use History / Comment(s): Quit smoking one year ago. He was smoking 1 or more ppd and sometimes pipe. Possible alcohol abuse in the remote past. Rare intake at this time. He lives at home with his . He does not have ambulatory devices, oxygen per nebulizer at home. Past Drug Use History: None Reported - Past Family History Father Additional Family Medical History / Comment(s): Father at age 63 from a myocardial infarction. Mother Additional Family Medical History / Comment(s): Mother in her 60s and patient does not know her medical history or cause of . Brother(s) Additional Family Medical History / Comment(s): Patient does not have any brothers or sisters. Patient's one daughter and 4 sons with no major medical problems. Medications and Allergies Home Medications Medication Instructions Recorded Confirmed Type Aspirin 325 mg PO DAILY 08/01/17 08/01/17 History Folic Acid 1 mg PO DAILY 08/01/17 08/01/17 History Lipase/Protease/Amylase [Creon Dr 1 cap PO TID 08/01/17 08/01/17 History 24,000 Units Capsule] Meloxicam [Mobic] 7.5 mg PO DAILY 08/01/17 08/01/17 History Multivitamins, Thera [Multivitamin 1 tab PO DAILY 08/01/17 08/01/17 History (formulary)] [place]-3/Dha/Epa/Fish Oil [Fish Oil 1 cap PO DAILY 08/01/17 08/01/17 History 500 mg Softgel] Allergies Allergy/AdvReac Type Severity Reaction Status Date / Time gluten Allergy Diarrhea Verified 08/01/17 16:58 Physical Exam Vitals: Vital Signs Temp Pulse Pulse Pulse Resp BP Pulse Ox 08/03/17 20:37 80 08/03/17 20:21 76 08/03/17 19:49 98 F 68 18 182/83 96 08/03/17 16:00 97.1 F L 63 16 137/70 94 L 08/03/17 15:40 78 08/03/17 15:23 76 20 08/03/17 13:12 61 20 161/76 08/03/17 12:44 58 L 14 147/72 98 08/03/17 12:11 57 L 14 151/74 98 08/03/17 11:45 96 F L 60 20 161/76 96 08/03/17 09:00 97.9 F 70 20 145/68 95 08/03/17 04:00 97 F L 85 18 137/76 93 L 08/02/17 23:45 98.6 F 92 18 124/78 95 Intake and Output 08/03/17 08/03/17 08/03/17 06:59 14:59 22:59 Intake Total 103.972 592.9 1113.456 Output Total 700 400 Balance -596.028 592.9 713.456 Intake: IV 200 Sodium Chloride 0.9% 1, 200 000 ml @ 50 mls/hr IV . Q20H [facility]ENG Rx#:[id number] Intake, IV Titration 103.972 152.9 153.456 Amount Heparin Sodium,Porcine/ 103.972 152.9 153.456 D5w Pmx 25,000 unit In Dextrose/Water 1 500ml. bag @ 12 UNITS/KG/HR 16. 68 mls/hr IV .Q24H MENG Rx #:[id number] Oral 240 960 Output: Urine 700 400 Other: Voiding Method Toilet Toilet Toilet Urinal Urinal Urinal # Voids 1 Weight 71.9 kg - Constitutional General appearance: no acute distress - EENT Eyes: EOMI, PERRLA ENT: hearing grossly normal, normal oropharynx - Neck Neck: lymphadenopathy (Right medial supraclavicular adenopathy, extending into the chest) Thyroid: bilateral: normal size - Respiratory Respiratory: bilateral: CTA - Cardiovascular Rhythm: regular Heart sounds: normal: S1, S2 - Gastrointestinal General gastrointestinal: normal bowel sounds, soft - Integumentary Integumentary: normal - Neurologic Comprehension slightly slow, the overall responses are appropriate. Markedly diminished recall Neurologic: CNII-XII intact - Musculoskeletal Musculoskeletal: generalized weakness Results CBC & Chem 7: 08/03/17 08:53 08/03/17 08:53 Labs: Abnormal Lab Results - Last 24 Hours (Table) 08/03/17 08/03/17 08/03/17 Range/Units 01:30 08:53 08:53 RBC 4.22 L (4.30-5.90) m/uL Hgb 12.3 L (13.0-17.5) gm/dL Hct 36.3 L (39.0-53.0) % APTT 32.3 H (22.0-30.0) sec Sodium 127 L (137-145) mmol/L Chloride 96 L (98-107) mmol/L Glucose 160 H (74-99) mg/dL 08/03/17 08/03/17 Range/Units 08:53 19:25 RBC (4.30-5.90) m/uL Hgb (13.0-17.5) gm/dL Hct (39.0-53.0) % APTT 36.8 H 54.7 H (22.0-30.0) sec Sodium (137-145) mmol/L Chloride (98-107) mmol/L Glucose (74-99) mg/dL Comments: Ultrasound neck, report reviewed Chest x-ray: report reviewed CT scan - chest: report reviewed, image reviewed CT Scan - head: report reviewed Assessment and Plan (1) Lung mass Narrative/Plan: The CT chest appearance the, and implications discussed in detail with the patient and his family. The presentation is highly suggestive of malignancy, likely a lung primary. This is especially so, given the presence of hyponatremia, which is a paraneoplastic finding with lung malignancies, especially small cell. A tissue diagnosis is required for confirmation. The patient is status post biopsy of right neck nodes. Biopsy reports awaited. The patient's family were advised, that assuming that a lung malignancy is confirmed, based on extent of disease on the CAT scan (regardless of histologic type), this is not operable. Adrenal nodules are suspicious for disease outside the lung field. The patient may need a PET scan for additional staging , as an outpatient Status: Acute (2) Altered mental status Narrative/Plan: The patient does have underlying short-term memory loss. The recent worsening could be due to hyponatremia. However brain metastasis are also a possibility. 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 Low serum osmolality supports the same. Demeclocycline will be started Status: Acute
[2017-08-03] MEDS: DEMECLOCYCLINE 150 MG TAB PO SCH (21:25)
[2017-08-03] MEDS: hydrALAZINE HCL 20 MG/ML 1 ML VIAL IVP PRN (22:35)
[2017-08-03] MEDS: HEPARIN SODIUM,PORCINE/D5W PMX 25,000 UNIT in DEXTROSE/WATER 1 500ML.BAG IV SCH (22:39)
[2017-08-03] MEDS ORDERED: ALPRAZolam 0.5 MG TAB PO STA (22:48)
[2017-08-04] MEDS: MELATONIN 5 MG TABLET PO SCH ×2 (00:30→22:16)
[2017-08-04 06:43] LABS: Basophils % (A) 0 %; CH 30.5; CHCM 35.8; Eosinophils # (A) 0.2 k/uL (0-0.7); Eosinophils % (A) 3 %; HCT 34.1 % (39.0-53.0); HDW 2.58; HGB 11.5 gm/dL (13.0-17.5); Luc # (Auto) 0.13; Luc % (Auto) 2; Lymphocytes # (A) 1.8 k/uL (1.0-4.8); Lymphocytes % (A) 27 %; MCHC 33.7 g/dL (31.0-37.0); MCV 85.8 fL (80.0-100.0); Mean Platelet Volume 6.8; Monocytes # (A) 0.6 k/uL (0-1.0); Monocytes % (A) 8 %; Neutrophils % (A) 59 %; RBC 3.97 m/uL (4.30-5.90); RDW 15.5 % (11.5-15.5); WBC 6.7 k/uL (3.8-10.6); WBC (Perox) 7.43
[2017-08-04 06:59] LABS: Anion Gap 9 mmol/L; Blood Urea Nitrogen 10 mg/dL (9-20); Calcium 8.6 mg/dL (8.4-10.2); Carbon Dioxide 22 mmol/L (22-30); Chloride 96 mmol/L (98-107); Glucose 113 mg/dL (74-99); Non-African American GFR(MDRD) >60 (>60 ml/min/1.73 sqM); Potassium 3.7 mmol/L (3.5-5.1); Sodium 127 mmol/L (137-145)
[2017-08-04] MEDS: IPRATROPIUM-ALBUTEROL 3 ML NEB INHALATION SCH ×4 (07:51→20:55)
[2017-08-04] MEDS: DEMECLOCYCLINE 150 MG TAB PO SCH ×2 (08:30→22:16)
[2017-08-04] MEDS: LIPASE 5,000/PROTEASE 17,000/AMYLASE 27,0000 PO SCH ×2 (08:30→16:04)
[2017-08-04] MEDS: METOPROLOL TARTRATE 50 MG TAB PO SCH ×2 (08:30→22:20)
[2017-08-04] MEDS: LOSARTAN 50 MG TAB PO SCH (08:31)
[2017-08-04] MEDS: FAMOTIDINE 20 MG TAB PO SCH (08:31)
--- NOTE | 2017-08-04 08:41 | EEG ---
ELECTROENCEPHALOGRAM REPORT DATE OF SERVICE: 08/03/2017 REASON FOR TESTING: Altered mental status. DESCRIPTION OF THE PROCEDURE: This EEG was performed using a 21 channel digital electroencephalograph, following international 10 - 20 system. DESCRIPTION OF THE RECORDING: From the beginning of the tracing, and with patient's eyes closed, the background rhythm was mostly consisting of 8 hertz alpha frequency in the posterior occipital leads. No obvious asymmetry is seen. Frequent movement and muscle artifacts are seen. Photic stimulation was performed with a minimal driving response seen. No pathological waves were elicited. Hyperventilation was not performed. The patient remains awake throughout the tracing. No epileptiform discharges were seen. His EKG lead showed a regular rate and rhythm. INTERPRETATION: This awake EEG can be considered within normal limits. There is no asymmetry seen. No epileptiform discharges were noticed. The absence of epileptiform discharges does not rule out the diagnosis of epilepsy, therefore clinical correlation is recommended. MMCHUCKIEL / IJDerek: [id number] /
--- NOTE | 2017-08-04 09:08 | ECHOF ---
Referral Reason:Afib new onset MEASUREMENTS -------- HEIGHT: 177.8 cm WEIGHT: 71.7 kg BP: 137/76 RVIDd: 2.9 cm (< 3.3) IVSd: 1.1 cm (0.6 - 1.1) LVIDd: 3.8 cm (3.9 - 5.3) LVPWd: 1.2 cm (0.6 - 1.1) IVSs: 1.7 cm LVIDs: 2.8 cm LVPWs: 1.5 cm LA Diam: 3.2 cm (2.7 - 3.8) LAESV Index (A-L): 29.02 ml/m Ao Diam: 3.6 cm (2.0 - 3.7) AV Cusp: 2.3 cm (1.5 - 2.6) MV EXCURSION: 19.523 mm (> 18.000) MV EF SLOPE: 93 mm/s (70 - 150) EPSS: 0.7 cm RAP: 5.00 mmHg RVSP: 27.16 mmHg FINDINGS -------- Atrial fibrillation. This was a technically good study. The left ventricular size is normal. There is borderline concentric left ventricular hypertrophy. Overall left ventricular systolic function is normal with, an EF between 55 - 60 %. The right ventricle is normal in size. LA is midly dilated 29-33ml/m2. The right atrium is normal in size. Aortic valve is trileaflet and is mildly thickened. Mild mitral annular calcification present. Mild tricuspid regurgitation present. Right ventricular systolic pressure is normal at < 35 mmHg. Trace/mild (physiologic) pulmonic regurgitation. The aortic root size is normal. Normal inferior vena cava with normal inspiratory collapse consistent with estimated right atrial pressure of 5 mmHg. There is no pericardial effusion. CONCLUSIONS -------- 1. Atrial fibrillation. 2. Mild mitral annular calcification present. 3. Mild tricuspid regurgitation present. 4. Right ventricular systolic pressure is normal at < 35 mmHg. 5. Trace/mild (physiologic) pulmonic regurgitation. 6. The aortic root size is normal. 7. Normal inferior vena cava with normal inspiratory collapse consistent with estimated right atrial pressure of 5 mmHg. 8. There is no pericardial effusion. 9. This was a technically good study. 10. The left ventricular size is normal. 11. There is borderline concentric left ventricular hypertrophy. 12. Overall left ventricular systolic function is normal with, an EF between 55 - 60 %. 13. The right ventricle is normal in size. 14. LA is midly dilated 29-33ml/m2. 15. The right atrium is normal in size. 16. Aortic valve is trileaflet and is mildly thickened. SPEEDER MACHINE OPERATOR: Mony Chao RDCS
--- NOTE | 2017-08-04 09:56 | PN ---
PROGRESS NOTE DATE OF SERVICE: 08/03/2017 HISTORY OF PRESENT ILLNESS: Patient is a 77-year-old male who initially came in with problems with mental status changes and dizziness and was found to be hyponatremic and also on x-ray and CAT scan done in the ER, was found to have a mass to the right upper lobe and right hilar adenopathy. Patient is seen today. He states that he is doing relatively well. Family is at bedside. He is denying any problems with cough at this time. He does complain of some left-sided chest pain. He has been eating relatively well. He does have shortness of breath with activity. He does have prolonged inspiration. He was to have FNA with core biopsy to the right neck for mass today. Family said not to believe everything that he says, that he has been confused off and on. He will be started on DuoNeb nebulizer treatments. PHYSICAL EXAMINATION: His vital signs showed a temperature of 97.9, heart rate 70, respiratory rate 20, blood pressure is 145/68, oxygen saturation on room air was 95%. LABS: Showed WBC is 7.8, hemoglobin 12.3, hematocrit 36.3, platelets 360. PTT was 36.8, sodium 127, potassium 4.1, chloride 96, carbon dioxide 22, BUN 13, creatinine is 0.78, glucose 160, calcium was 8.6. GENERAL: He is a 77-year-old male who appears in no acute respiratory distress at this time. HEENT: Pupils are equal, reactive. Head is atraumatic, normocephalic. Neck is supple. Lungs are essentially clear. He does have some prolonged inspiration. CARDIOVASCULAR: S1, S2 is heard, regular. ABDOMEN: Soft, nontender. EXTREMITIES: No edema. NEUROLOGIC: He appears awake, alert. IMPRESSION: 1. 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 2. Metabolic encephalopathy secondary to hyponatremia. 3. Lung mass with metastatic disease. 4. History of asbestos exposure. PLAN: 1. To wait for FNA results of the right neck mass biopsy. 2. Continue DuoNeb nebulizer treatments as ordered. 3. Continue with GI and DVT prophylaxis. 4. Continue to correct his hyponatremia. 5. We will continue to follow patient closely with you and make further changes as necessary. MMODL / IJN: [id number] /
--- NOTE | 2017-08-04 11:40 | P.PN ---
Subjective Principal diagnosis: Atrial fibrillation This is 77-year-old gentleman with history of hypertension, who was admitted to the hospital primarily with symptoms of mental status changes and confusion. He has cervical lymphadenopathy, patient developed atrial fibrillation while in the hospital for this reason a cardiology consultation was requested. Patient was seen in consultation yesterday by Dr. Verdugo. This morning he is in a normal sinus rhythm. Continues to be confused this morning. Blood pressure 150/70 with a heart rate in the 60s. 94% on room air. Echocardiogram with Doppler study performed which revealed an ejection fraction of 55-60%. Dr. Hendrix has also seen the patient in consultation for a lung mass. He had a lengthy discussion with the family, the CT chest appearance and implications discussed in detail with them. Presentation is highly suggestive of malignancy, likely a lung primary. Patient did undergo biopsy of the right neck nodes, biopsy is still pending. Sodium 127, potassium 3.7, BUN 10, creatinine 0.7. We will continue current dose of metoprolol tartrate. Wait for results of biopsy Before recommending anticoagulation. Objective - Vital Signs Vital signs: Vital Signs Temp 96.0 F L 08/04/17 08:00 Pulse 66 08/04/17 08:00 Resp 18 08/04/17 08:00 BP 160/67 08/04/17 08:00 Pulse Ox 93 L 08/04/17 08:00 Intake & Output 08/03/17 08/04/17 08/04/17 18:59 06:59 18:59 Intake Total 1552.9 413.664 120 Output Total 400 1 Balance 1152.9 412.664 120 Weight 71.7 kg Intake: IV 200 Sodium Chloride 0.9% 1, 200 000 ml @ 50 mls/hr IV . Q20H [facility]ENG Rx#:[id number] Intake, IV Titration 152.9 413.664 Amount Heparin Sodium,Porcine/ 152.9 413.664 D5w Pmx 25,000 unit In Dextrose/Water 1 500ml. bag @ 12 UNITS/KG/HR 16. 68 mls/hr IV .Q24H [facility]ENG Rx #:[id number] Oral 1200 120 Output: Urine 400 Urine/Stool Mix 1 Other: Voiding Method Toilet Toilet Urinal Urinal # Voids 1 - Exam PHYSICAL EXAMINATION: HEENT: Head is atraumatic, normocephalic. Pupils equal, round. Neck is supple. There is no elevated jugular venous pressure. HEART EXAMINATION: Heart S1, S2 normal. No murmur or gallop heard. CHEST EXAMINATION: Lungs are clear to auscultation and precussion. No chest wall tenderness is noted on palpation or with deep breathing. ABDOMEN: Soft, nontender. Bowel sounds are heard. No organomegaly noted. EXTREMITIES: 2+ peripheral pulses with no evidence of peripheral edema and no calf tenderness noted. NEUROLOGIC patient is awake, alert and oriented -2. . - Labs CBC & Chem 7: 08/04/17 06:11 08/04/17 06:11 Labs: Abnormal Lab Results - Last 24 Hours (Table) 08/03/17 08/04/17 08/04/17 Range/Units 19:25 06:11 06:11 RBC 3.97 L (4.30-5.90) m/uL Hgb 11.5 L (13.0-17.5) gm/dL Hct 34.1 L (39.0-53.0) % APTT 54.7 H (22.0-30.0) sec Sodium 127 L (137-145) mmol/L Chloride 96 L (98-107) mmol/L Glucose 113 H (74-99) mg/dL 08/04/17 Range/Units 06:11 RBC (4.30-5.90) m/uL Hgb (13.0-17.5) gm/dL Hct (39.0-53.0) % APTT 51.4 H (22.0-30.0) sec Sodium (137-145) mmol/L Chloride (98-107) mmol/L Glucose (74-99) mg/dL Assessment and Plan (1) HTN (hypertension) Status: Acute (2) Pancreatic insufficiency Status: Acute (3) Paroxysmal a-fib Status: Acute (4) Acute metabolic encephalopathy Status: Acute (5) Hyponatremia Status: Acute (6) Lung mass Status: Acute Plan: From cardiology's perspective, we will continue beta blockers for rate control and heparin for anticoagulation, await biopsy results. Decision on long-term anticoagulation will be made pending those results. DNP note has been reviewed, I agree with a documented findings and plan of care. Patient was seen and examined.
[2017-08-04] MEDS: FOLIC ACID 1 MG TAB PO SCH (11:49)
[2017-08-04] MEDS: amLODIPine 5 MG TAB PO SCH (11:49)
[2017-08-04] MEDS: MULTIVITAMINS, THERA 1 EACH TAB PO SCH (11:49)
[2017-08-04] MEDS: APIXABAN 5 MG TAB PO SCH ×2 (12:14→22:16)
--- NOTE | 2017-08-04 12:31 | P.PN ---
Subjective Patient is seen in follow-up for hyponatremia. Sodium level is stable at 127 today. Patient's noted to have a right lung mass for which she underwent a biopsy this admission. The results are pending. He is currently maintained on the [place] cyclines as well as fluid restriction. Hemodynamically stable. No vomiting or diarrhea. Oral intake is good. Admits to good urine output. Vital signs are stable. General: The patient appeared well nourished and normally developed. HEENT: Head exam is unremarkable. Neck is without jugular venous distension. LUNGS: Lungs are clear to auscultation and percussion. Breath sounds decreased. HEART: Rate and Rhythm are regular. First and second heart sounds normal. No murmurs, rubs or gallops. ABDOMEN: Abdominal exam reveals normal bowel sounds. Non-tender and non- distended. No evidence of peritonitis. EXTREMITITES: No clubbing, cyanosis, or edema. Objective - Vital Signs Vital signs: Vital Signs Temp 97.9 F 08/04/17 11:54 Pulse 58 L 08/04/17 11:54 Resp 18 08/04/17 11:54 BP 139/90 08/04/17 11:54 Pulse Ox 95 08/04/17 11:54 Intake & Output 08/03/17 08/04/17 08/04/17 18:59 06:59 18:59 Intake Total 1552.9 413.664 420 Output Total 400 1 Balance 1152.9 412.664 420 Weight 71.7 kg Intake: IV 200 Sodium Chloride 0.9% 1, 200 000 ml @ 50 mls/hr IV . Q20H [facility]ENG Rx#:[id number] Intake, IV Titration 152.9 413.664 Amount Heparin Sodium,Porcine/ 152.9 413.664 D5w Pmx 25,000 unit In Dextrose/Water 1 500ml. bag @ 12 UNITS/KG/HR 16. 68 mls/hr IV .Q24H MENG Rx #:[id number] Oral 1200 420 Output: Urine 400 Urine/Stool Mix 1 Other: Voiding Method Toilet Toilet Urinal Urinal # Voids 1 - Labs CBC & Chem 7: 08/04/17 06:11 08/04/17 06:11 Labs: Abnormal Lab Results - Last 24 Hours (Table) 08/03/17 08/04/17 08/04/17 Range/Units 19:25 06:11 06:11 RBC 3.97 L (4.30-5.90) m/uL Hgb 11.5 L (13.0-17.5) gm/dL Hct 34.1 L (39.0-53.0) % APTT 54.7 H (22.0-30.0) sec Sodium 127 L (137-145) mmol/L Chloride 96 L (98-107) mmol/L Glucose 113 H (74-99) mg/dL 08/04/17 Range/Units 06:11 RBC (4.30-5.90) m/uL Hgb (13.0-17.5) gm/dL Hct (39.0-53.0) % APTT 51.4 H (22.0-30.0) sec Sodium (137-145) mmol/L Chloride (98-107) mmol/L Glucose (74-99) mg/dL Assessment and Plan Plan: Assessment: #1. 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 Sodium level is stable at 127 today. #2. Right lung mass status post biopsy. Results are pending at this time. #3. Benign hypertension. Controlled. Plan: Maintain demeclocycline 150 mg twice daily. Maintain fluid restriction. I will add Lasix 20 mg orally twice daily. Add ensure with meals. Repeat electrolytes in the morning.
--- NOTE | 2017-08-04 13:39 | P.PN ---
Subjective This is a 77-year-old male patient of Dr. Storm Calvin with a past medical history of osteoarthritis, atraumatic insufficiency. Patient has history that he was walking across a parking lot and suddenly blacked out. Patient denies any chest pain or abdominal pain. He denies any dysuria. No diarrhea. He denies any injury or headache when he fell. He states his appetite has been okay. He denies any weight loss. Patient is a poor historian and is noted that this was not noted in the ER report. Patient presented to [facility] emergency center due to change in mental status that started Tuesday. Patient apparently had decreased episodes of responsiveness and confusion. Family noticed a left facial droop at some point but none was present at the time of presentation. Patient had difficulty using his utensils to eat his dinner as well as breakfast yesterday morning. EKG was in normal sinus rhythm with no acute ST changes. White count was normal. Sodium was down to 124. Troponin was negative and blood sugar was 132. Patient underwent CAT scan of the brain that showed atrophy and paranasal sinus disease. CAT scan of the chest showed 2 right apical parenchymal lesions extending to the pleural margin suspicious for neoplasm. Multiple enlarged mediastinal lymph nodes and additional lymphadenopathy in the right axilla region and right supraclavicular lesion. Workup for suspected metastatic lesions as recommended. Patient was started on IV fluids 0.9 normal saline at 100 mL per hour and admitted to the selective care unit. Consults in place for neurology and Dr. CHERELLE Sena. Case was discussed with Dr. CHERELLE Sena and radiology. Patient will undergo 18 right neck mass biopsy tomorrow. Lovenox placed on hold. Nephrology consult has also been added for hyponatremia. 08/03: Patient had ultrasound of the neck that showed 3 right-sided neck masses and the largest measuring 4.6 cm compatible with adenopathy. His has agreed to biopsy today. Patient has been seen by Dr. Starr for euvolemic hyponatremia likely secondary to SIADH. IV fluids were decreased to 50cc/hr but sodium is lower to 127. IV fluids will be discontinued and fluid restriction of 1000cc /day started. Patient may require demeclcylomine as per Dr. Starr's recommendation. He was seen by Dr. Lazcano for atrial fibrillation. Patient is continued on heparin drip and echocardiogram ordered. Dr. Martínez evaluated patient and EEG ordered. 05/04: Yesterday, patient underwent successful ultrasound-guided fine needle aspiration core biopsy of the right neck mass. He was seen in consultation by Dr. Hendrix. Patient may require PET scan for additional staging as an outpatient. MRI of the brain was ordered to rule out brain metastases. Dr. Hendrix has started demeclocycline. Patient was more confused last night. Melatonin added to help with sleep. Heparin drip will be discontinued and patient started on eliquis. IV antibiotics switched over to oral Cipro. Repeat sodium is 127. Objective - Vital Signs Vital signs: Vital Signs Temp 97.9 F 08/04/17 11:54 Pulse 58 L 08/04/17 11:54 Resp 18 08/04/17 11:54 BP 139/90 08/04/17 11:54 Pulse Ox 95 08/04/17 11:54 Intake & Output 08/03/17 08/04/17 08/04/17 18:59 06:59 18:59 Intake Total 1552.9 413.664 420 Output Total 400 1 Balance 1152.9 412.664 420 Weight 71.7 kg Intake: IV 200 Sodium Chloride 0.9% 1, 200 000 ml @ 50 mls/hr IV . Q20H MENG Rx#:[id number] Intake, IV Titration 152.9 413.664 Amount Heparin Sodium,Porcine/ 152.9 413.664 D5w Pmx 25,000 unit In Dextrose/Water 1 500ml. bag @ 12 UNITS/KG/HR 16. 68 mls/hr IV .Q24H MENG Rx #:[id number] Oral 1200 420 Output: Urine 400 Urine/Stool Mix 1 Other: Voiding Method Toilet Toilet Urinal Urinal # Voids 1 - Exam Gen: This is a 77-year-old male sitting up in a chair at bedside and appears to be in no acute distress. HEENT: Head is atraumatic, normocephalic. Pupils equal, round. Sclerae is anicteric. NECK: Supple. No JVD. No lymphadenopathy. No thyromegaly. LUNGS: Clear to auscultation. No wheezes or rhonchi. No intercostal retractions. HEART: Regular rate and rhythm. No murmur. ABDOMEN: Soft. Bowel sounds are present. No masses. No tenderness. EXTREMITIES: No pedal edema. No calf tenderness. NEUROLOGICAL: Patient is awake, alert and oriented x2. Cranial nerves 2 through 12 are grossly intact. - Labs CBC & Chem 7: 08/04/17 06:11 08/04/17 06:11 Labs: Abnormal Lab Results - Last 24 Hours (Table) 08/03/17 08/04/17 08/04/17 Range/Units 19:25 06:11 06:11 RBC 3.97 L (4.30-5.90) m/uL Hgb 11.5 L (13.0-17.5) gm/dL Hct 34.1 L (39.0-53.0) % APTT 54.7 H (22.0-30.0) sec Sodium 127 L (137-145) mmol/L Chloride 96 L (98-107) mmol/L Glucose 113 H (74-99) mg/dL 08/04/17 Range/Units 06:11 RBC (4.30-5.90) m/uL Hgb (13.0-17.5) gm/dL Hct (39.0-53.0) % APTT 51.4 H (22.0-30.0) sec Sodium (137-145) mmol/L Chloride (98-107) mmol/L Glucose (74-99) mg/dL Assessment and Plan Plan: 1. Metabolic encephalopathy most likely secondary to hyponatremia presenting with sodium of 124. IV fluids discontinued and start fluid restriction of 1000cc/hr. Continue to monitor sodium. Consult in place with neurology. Continue aspirin daily 2. Hyponatremia of unclear etiology possibly secondary to SIADH secondary to possible lung cancer. Continue as in #1. 3. Pleural lesions concern for neoplasm and metastatic disease. Consult with Dr. CHERELLE Sena. CAT scan guided right neck mass biopsy completed. Consult with Dr. Hendrix appreciated. 4. New onset hypertension. Continue Cozaar 100 mg daily. Hydralazine as needed for blood pressure greater than 160. 5. No onset atrial fibrillation. Cardiology consult appreciated. Patient has been started on heparin drip and metoprolol. Heparin drip transitioned eliquis. 6. Pancreatic insufficiency. Continue Zenpep, folic acid and multivitamin. 7. DVT prophylaxis. Lovenox will be started tomorrow after neck biopsy. 8. Gastric intestinal prophylaxis. Pepcid. 9. History of asbestosis exposure. Discharge plan: Home with [facility] in the next 24 hours Impression and plan of care have been directed as dictated by the signing physician. Aubree Monroe nurse practitioner acting as scribe for signing physician.
--- NOTE | 2017-08-04 15:45 | P.PN ---
Subjective Principal diagnosis: Altered mental status This 77-year-old male continuing to be evaluated by the neurology service for altered mental status. He was found to be confused by his family. A CT showed no acute intracranial abnormalities. Chest x-ray did show evidence of lung mass. CT of the chest showed 2 lesions and lymph node enlargement in the mediastinum. He is now being followed by oncology and pulmonology. At the time my exam he is resting comfortably in bed in no acute distress. She has undergone fine-needle aspiration biopsy. An MRI of the brain has been performed to check for metastasis. We are awaiting results on both of these. He denies any new neurological symptoms. Objective - Vital Signs Vital signs: Vital Signs Temp 97.9 F 08/04/17 11:54 Pulse 68 08/04/17 15:28 Resp 18 08/04/17 11:54 BP 139/90 08/04/17 11:54 Pulse Ox 95 08/04/17 11:54 Intake & Output 08/03/17 08/04/17 08/04/17 18:59 06:59 18:59 Intake Total 1552.9 413.664 540 Output Total 400 1 Balance 1152.9 412.664 540 Weight 71.7 kg Intake: IV 200 Sodium Chloride 0.9% 1, 200 000 ml @ 50 mls/hr IV . Q20H MENG Rx#:[id number] Intake, IV Titration 152.9 413.664 Amount Heparin Sodium,Porcine/ 152.9 413.664 D5w Pmx 25,000 unit In Dextrose/Water 1 500ml. bag @ 12 UNITS/KG/HR 16. 68 mls/hr IV .Q24H MENG Rx #:[id number] Oral 1200 540 Output: Urine 400 Urine/Stool Mix 1 Other: Voiding Method Toilet Toilet Urinal Urinal # Voids 1 - Constitutional General appearance: Present: cooperative, no acute distress - EENT Eyes: Present: EOMI, PERRLA. Absent: abnormal pupil, ptosis ENT: Present: hearing grossly normal - Neck Neck: Present: normal ROM. Absent: rigidity - Respiratory Respiratory: negative: prolonged expiration, prolonged inspiration - Cardiovascular Rhythm: regular - Gastrointestinal General gastrointestinal: Absent: distended, tenderness - Neurologic Neurologic Comment(s): Patient is alert awake and oriented to person and partially to place and partially to time. Each language are normal. There is no facial asymmetry. There is no lateralizing weakness. Cranial nerves II through XII are intact globally. No tremors or seizure-like activities are seen. There are no sensory deficits. - Labs CBC & Chem 7: 08/04/17 06:11 08/04/17 06:11 Labs: Abnormal Lab Results - Last 24 Hours (Table) 08/03/17 08/04/17 08/04/17 Range/Units 19:25 06:11 06:11 RBC 3.97 L (4.30-5.90) m/uL Hgb 11.5 L (13.0-17.5) gm/dL Hct 34.1 L (39.0-53.0) % APTT 54.7 H (22.0-30.0) sec Sodium 127 L (137-145) mmol/L Chloride 96 L (98-107) mmol/L Glucose 113 H (74-99) mg/dL 08/04/17 Range/Units 06:11 RBC (4.30-5.90) m/uL Hgb (13.0-17.5) gm/dL Hct (39.0-53.0) % APTT 51.4 H (22.0-30.0) sec Sodium (137-145) mmol/L Chloride (98-107) mmol/L Glucose (74-99) mg/dL Assessment and Plan (1) Acute metabolic encephalopathy Status: Acute (2) Lung mass Status: Acute (3) Altered mental status Status: Acute (4) Hyponatremia Status: Acute Plan: Again his hyponatremia can be a likely cause of his altered mental status. Pulmonology will continue to follow for his lung masses. His EEG was normal. Continue monitoring and correcting sodium levels. Continue neurological checks. His MRI of the brain has been performed and results are not yet available. We will continue to follow. I have performed a history and physical on the above patient. I have reviewed the above note, and agree.
--- NOTE | 2017-08-04 16:02 | MR ---
EXAMINATION TYPE: MR brain wo/w con DATE OF EXAM: 08/04/2017 COMPARISON: NONE HISTORY: Lung mass, Mental status changes CONTRAST: Performed utilizing 7 mL intravenous Gadavist gadolinium contrast. TECHNIQUE: Multiplanar, multiecho imaging on a 3.0 Audra magnet is performed through the brain. Stud y is performed within 24 hours of arrival to the hospital. The craniovertebral junction is normal. The pituitary is poorly visualized. Diffusion-weighted imaging is performed. No abnormal hyperintensity is present to suggest an acute i ntracranial infarct or acute ischemic change. There are confluent white matter changes in the periventricular white matter. White matter changes ar e also present within the brainstem and cerebral peduncles. Findings are likely related to microvascu lar ischemic changes. Ventricles and sulci are prominent for the patient age. No abnormal enhancement is evident. Calvarium appears intact. There is opacification of the frontal s inuses anterior and mid ethmoid air cells and to a minimal degree within the left maxillary sinus com patible with some sinus disease. An air-fluid level is identified within the left maxillary sinus com patible with acute maxillary sinusitis. Mastoid air cells appear clear. IMPRESSIONS: 1. Confluent periventricular white matter changes most likely on the basis of microvascular ischemic change. 2. Suspicious changes to suggest metastasis is not identified. 3. Atrophy. 4. Paranasal sinus disease. Acute left maxillary sinusitis may be present.
[2017-08-04] MEDS: FUROSEMIDE 20 MG TAB PO SCH (16:04)
[2017-08-05] MEDS: LIPASE 5,000/PROTEASE 17,000/AMYLASE 27,0000 PO SCH ×2 (00:29→08:18)
[2017-08-05 07:03] LABS: Basophils % (A) 0 %; CH 28.9; CHCM 34.1; Eosinophils # (A) 0.2 k/uL (0-0.7); Eosinophils % (A) 3 %; HCT 37.1 % (39.0-53.0); HDW 2.68; HGB 12.7 gm/dL (13.0-17.5); Luc # (Auto) 0.22; Luc % (Auto) 3; Lymphocytes # (A) 2.5 k/uL (1.0-4.8); Lymphocytes % (A) 32 %; MCH 29.1 pg (25.0-35.0); MCHC 34.2 g/dL (31.0-37.0); MCV 85.2 fL (80.0-100.0); Mean Platelet Volume 6.8; Monocytes # (A) 0.5 k/uL (0-1.0); Monocytes % (A) 7 %; Neutrophils # (A) 4.4 k/uL (1.3-7.7); Neutrophils % (A) 55 %; RBC 4.35 m/uL (4.30-5.90); RDW 14.5 % (11.5-15.5); WBC (Perox) 8.42
[2017-08-05 07:29] LABS: Anion Gap 9 mmol/L; Blood Urea Nitrogen 13 mg/dL (9-20); Calcium 9.2 mg/dL (8.4-10.2); Carbon Dioxide 24 mmol/L (22-30); Chloride 95 mmol/L (98-107); Glucose 105 mg/dL (74-99); Magnesium 1.8 mg/dL (1.6-2.3); Non-African American GFR(MDRD) >60 (>60 ml/min/1.73 sqM); Sodium 128 mmol/L (137-145)
[2017-08-05] MEDS: METOPROLOL TARTRATE 50 MG TAB PO SCH (08:17)
[2017-08-05] MEDS: FAMOTIDINE 20 MG TAB PO SCH (08:17)
[2017-08-05] MEDS: LOSARTAN 50 MG TAB PO SCH (08:17)
[2017-08-05] MEDS: FUROSEMIDE 20 MG TAB PO SCH (08:17)
[2017-08-05] MEDS: DEMECLOCYCLINE 150 MG TAB PO SCH (08:18)
[2017-08-05] MEDS: APIXABAN 5 MG TAB PO SCH (08:18)
[2017-08-05] MEDS: IPRATROPIUM-ALBUTEROL 3 ML NEB INHALATION SCH (08:43)
[2017-08-05 09:56] VITALS: BP 162/70; PULSE 60; TEMP 96.9
[2017-08-05] MEDS ORDERED: DEMECLOCYCLINE 150 MG TAB PO SCH (10:56)
[2017-08-05] MEDS: MULTIVITAMINS, THERA 1 EACH TAB PO SCH (12:00)
[2017-08-05] MEDS: FOLIC ACID 1 MG TAB PO SCH (12:00)
[2017-08-05] MEDS: amLODIPine 5 MG TAB PO SCH (12:00)
[2017-08-05 13:20] VITALS: BMI 22.1
--- NOTE | 2017-08-05 13:52 | P.PN ---
Subjective Principal diagnosis: Atrial Fibrillation This is a pleasantly confused 77-year-old gentleman with history of hypertension and he was admitted to the hospital primarily with symptoms of mental status changes and confusion. He has cervical lymphadenopathy. Patient developed atrial fibrillation mom the hospital for this reason a cardiology consultation was requested. Echocardiogram was done that showed ejection fraction of 55-60%. Patient at one point however his back into atrial fibrillation with a controlled ventricular response. Dr. Hendrix is also On consult for lung mass which is highly suggestive of malignancy. Patient did undergo biopsy of the right neck lymph nodes which is pending. On examination, patient is sitting up at the side of the bed. He is feeling fairly well. He remains confused but denies complaints of palpitations, dizziness or chest discomfort. Objective - Vital Signs Vital signs: Vital Signs Temp 96.9 F L 08/05/17 08:00 Pulse 80 08/05/17 08:55 Resp 18 08/05/17 08:00 BP 162/70 08/05/17 08:00 Pulse Ox 98 08/05/17 08:44 Intake & Output 08/04/17 08/05/17 08/05/17 18:59 06:59 18:59 Intake Total 840 350 Output Total 300 0 Balance 540 350 0 Weight 70.2 kg 70.2 kg Intake: Oral 840 350 Output: Urine 300 0 - Exam PHYSICAL EXAMINATION: HEENT: Head is atraumatic, normocephalic. Pupils equal, round. Neck is supple. There is no elevated jugular venous pressure. HEART EXAMINATION: Heart sounds irregularly irregular, S1 and S2 normal. No murmur or gallop heard. CHEST EXAMINATION: Lungs are clear to auscultation and precussion. No chest wall tenderness is noted on palpation or with deep breathing. ABDOMEN: Soft, nontender. Bowel sounds are heard. No organomegaly noted. EXTREMITIES: 2+ peripheral pulses with no evidence of peripheral edema and no calf tenderness noted. NEUROLOGIC patient is awake, alert and oriented x2. . 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 Patient has been started on Eliquis by primary. We will continue to follow the patient and provide further recommendations to follow. The above dictated assessment and findings were discussed with signing physician. The impression and plan of care have been directed as dictated. Charlotte Gray, Nurse Practitioner, acting as scribe for signing physician.
--- NOTE | 2017-08-05 14:36 | P.DS ---
Providers Date of admission: 08/01/17 15:37 Attending physician: Thanh Joshi Consults: 08/01/17 15:38 Consult Physician Urgent Consulting Provider: Jesu Sena Consult Reason/Comments: pleural lung densities Do you want consulting provider notified?: Yes Consult Physician Urgent Consulting Provider: Larissa Martínez Consult Reason/Comments: ams Do you want consulting provider notified?: Yes 08/02/17 11:00 Consult Physician Routine Consulting Provider: Fernando Jackson Consult Reason/Comments: hyponatremia Do you want consulting provider notified?: Yes 08/02/17 12:07 Consult Physician Routine Consulting Provider: Eren Hendrix Consult Reason/Comments: poss lung ca Do you want consulting provider notified?: Yes 08/02/17 19:14 Consult Physician Routine Consulting Provider: Alexx Norwood Consult Reason/Comments: Afib new onset Do you want consulting provider notified?: Yes Primary care physician: Storm Calvin [facility] Course: This is a 77-year-old male patient of Dr. Storm Calvin with a past medical history of osteoarthritis, atraumatic insufficiency. Patient has history that he was walking across a parking lot and suddenly blacked out. Patient denies any chest pain or abdominal pain. He denies any dysuria. No diarrhea. He denies any injury or headache when he fell. He states his appetite has been okay. He denies any weight loss. Patient is a poor historian and is noted that this was not noted in the ER report. Patient presented to [facility] emergency center due to change in mental status that started Tuesday. Patient apparently had decreased episodes of responsiveness and confusion. Family noticed a left facial droop at some point but none was present at the time of presentation. Patient had difficulty using his utensils to eat his dinner as well as breakfast yesterday morning. EKG was in normal sinus rhythm with no acute ST changes. White count was normal. Sodium was down to 124. Troponin was negative and blood sugar was 132. Patient underwent CAT scan of the brain that showed atrophy and paranasal sinus disease. CAT scan of the chest showed 2 right apical parenchymal lesions extending to the pleural margin suspicious for neoplasm. Multiple enlarged mediastinal lymph nodes and additional lymphadenopathy in the right axilla region and right supraclavicular lesion. Workup for suspected metastatic lesions as recommended. Patient was started on IV fluids 0.9 normal saline at 100 mL per hour and admitted to the selective care unit. Consults in place for neurology and Dr. CHERELLE Sena. Case was discussed with Dr. CHERELLE Sena and radiology. Patient will undergo 18 right neck mass biopsy tomorrow. Lovenox placed on hold. Nephrology consult has also been added for hyponatremia. 08/03: Patient had ultrasound of the neck that showed 3 right-sided neck masses and the largest measuring 4.6 cm compatible with adenopathy. His has agreed to biopsy today. Patient has been seen by Dr. Starr for euvolemic hyponatremia likely secondary to SIADH. IV fluids were decreased to 50cc/hr but sodium is lower to 127. IV fluids will be discontinued and fluid restriction of 1000cc /day started. Patient may require demeclcylomine as per Dr. Starr's recommendation. He was seen by Dr. Lazcano for atrial fibrillation. Patient is continued on heparin drip and echocardiogram ordered. Dr. Martínez evaluated patient and EEG ordered. 08/04: Yesterday, patient underwent successful ultrasound-guided fine needle aspiration core biopsy of the right neck mass. He was seen in consultation by Dr. Hendrix. Patient may require PET scan for additional staging as an outpatient. MRI of the brain was ordered to rule out brain metastases. Dr. Hendrix has started demeclocycline. Patient was more confused last night. Melatonin added to help with sleep. Heparin drip will be discontinued and patient started on eliquis. IV antibiotics switched over to oral Cipro. Repeat sodium is 127. 08/05: Patient's doing better, no confusional state, MRI failed to reveal any metastatic lesions, no new events today, stable for discharge outpatient follow- up biopsy currently pending on discharge follow-up with Dr. Mauricio Castro/Wade Sena and PCP Dr. Allen Calvin on discharge FINAL DIAGNOSIS 1. Metabolic encephalopathy most likely secondary to hyponatremia presenting with sodium of 124. IV fluids discontinued and start fluid restriction of 1000cc/hr. Continue to monitor sodium. Neurologist with Dr. Martínez. Continue aspirin daily hyponatremia treated with DEMECYCLOMINE 2. Hyponatremia of unclear etiology secondary to SIADH secondary to possible lung cancer. Treated with demecyclomin and Continue as in #1. 3. Pleural lesions concern for neoplasm and metastatic disease. Consult with Dr. CHERELLE Sena. CAT scan guided right neck mass biopsy completed. Consult with Dr. Hendrix appreciated. Outpatient management 4. New onset hypertension. Continue Cozaar 100 mg daily. Hydralazine as needed for blood pressure greater than 160. 5. New onset atrial fibrillation. Cardiology consult appreciated. Patient has been started on heparin drip and metoprolol. Heparin drip transitioned eliquis. On discharge stable with metoprolol 6. Pancreatic insufficiency. Continue Zenpep, folic acid and multivitamin. 7. DVT prophylaxis. Lovenox will be started tomorrow after neck biopsy. 8. Gastric intestinal prophylaxis. Pepcid. 9. History of asbestosis exposure. Discharge Medication List Folic Acid 1 mg PO DAILY 08/01/17 [History] Lipase/Protease/Amylase [Angeline Flores 24,000 Units Capsule] 1 cap PO TID 08/01/17 [ History] Multivitamins, Thera [Multivitamin (formulary)] 1 tab PO DAILY 08/01/17 [History ] [place]-3/Dha/Epa/Fish Oil [Fish Oil 500 mg Softgel] 1 cap PO DAILY 08/01/17 [ History] Apixaban [Eliquis] 5 mg PO BID #60 tab 08/05/17 [Rx] Aspirin EC [Ecotrin Low Dose] 81 mg PO DAILY #30 tablet. 08/05/17 [Rx] Demeclocycline [Declomycin] 300 mg PO Q12HR #60 tab 08/05/17 [Rx] Furosemide [Lasix] 20 mg PO BID@0900,1600 #60 tab 08/05/17 [Rx] Losartan [Cozaar] 100 mg PO DAILY #30 tab 08/05/17 [Rx] Melatonin 5 mg PO HS #30 tab 08/05/17 [Rx] Metoprolol Tartrate [Lopressor] 50 mg PO BID #60 tab 08/05/17 [Rx] amLODIPine [Norvasc] 5 mg PO DAILY@1200 #30 tab 08/05/17 [Rx] Patient Condition at Discharge: Good Plan - Discharge Summary New Discharge Prescriptions: New amLODIPine [Norvasc] 5 mg PO DAILY@1200 #30 tab Apixaban [Eliquis] 5 mg PO BID #60 tab Aspirin EC [Ecotrin Low Dose] 81 mg PO DAILY #30 tablet. Demeclocycline [Declomycin] 300 mg PO Q12HR #60 tab Furosemide [Lasix] 20 mg PO BID@0900,1600 #60 tab Losartan [Cozaar] 100 mg PO DAILY #30 tab Melatonin 5 mg PO HS #30 tab Metoprolol Tartrate [Lopressor] 50 mg PO BID #60 tab Continue [place]-3/Dha/Epa/Fish Oil [Fish Oil 500 mg Softgel] 1 cap PO DAILY Multivitamins, Thera [Multivitamin (formulary)] 1 tab PO DAILY Lipase/Protease/Amylase [Angeline Flores 24,000 Units Capsule] 1 cap PO TID Folic Acid 1 mg PO DAILY Discontinued Meloxicam [Mobic] 7.5 mg PO DAILY Aspirin 325 mg PO DAILY Discharge Medication List Folic Acid 1 mg PO DAILY 08/01/17 [History] Lipase/Protease/Amylase [Angeline Flores 24,000 Units Capsule] 1 cap PO TID 08/01/17 [ History] Multivitamins, Thera [Multivitamin (formulary)] 1 tab PO DAILY 08/01/17 [History ] [place]-3/Dha/Epa/Fish Oil [Fish Oil 500 mg Softgel] 1 cap PO DAILY 08/01/17 [ History] Apixaban [Eliquis] 5 mg PO BID #60 tab 08/05/17 [Rx] Aspirin EC [Ecotrin Low Dose] 81 mg PO DAILY #30 tablet. 08/05/17 [Rx] Demeclocycline [Declomycin] 300 mg PO Q12HR #60 tab 08/05/17 [Rx] Furosemide [Lasix] 20 mg PO BID@0900,1600 #60 tab 08/05/17 [Rx] Losartan [Cozaar] 100 mg PO DAILY #30 tab 08/05/17 [Rx] Melatonin 5 mg PO HS #30 tab 08/05/17 [Rx] Metoprolol Tartrate [Lopressor] 50 mg PO BID #60 tab 08/05/17 [Rx] amLODIPine [Norvasc] 5 mg PO DAILY@1200 #30 tab 08/05/17 [Rx] Follow up Appointment(s)/Referral(s): Eren Hendrix MD [STAFF PHYSICIAN] - 2 Weeks [facility], [NON-STAFF] - Jesu Sena MD [STAFF PHYSICIAN] - 08/12/17 2:30 pm Ravinder Lazcano MD [STAFF PHYSICIAN] - 08/11/17 3:45 pm Storm Calvin MD [Primary Care Provider] - 08/11/17 2:00 pm Patient Instructions/Handouts: Hyponatremia (DC) Discharge Disposition: HOME SELF-CARE
--- NOTE | 2017-08-06 11:12 | PN ---
PROGRESS NOTE DATE OF SERVICE: 08/05/2017. The patient is seen for followup for hyponatremia which initially improved with saline and then the serum sodium did not change further after 127. It actually decreased from 129. The patient has been now started on fluid restriction as well as demeclocycline. He is actually being discharged today. 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 EXAMINATION: Blood pressure is 162/70, heart rate 79 per minute. Patient is afebrile. Examination of the heart: S1, S2. Examination of the lungs: Bilateral breath sounds are heard. Abdomen is soft. Examination lower extremity shows no edema. 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 LAB: Shows sodium 128, potassium 4.0, serum creatinine 0.8. ASSESSMENT: Hyponatremia, initially hypovolemic, currently euvolemic secondary to SIADH, now maintained on fluid restriction and demeclocycline, which we will continue. I will increase the demeclocycline to 300 b.i.d. and the patient can be discharged from nephrology standpoint. He should follow up as outpatient with repeat labs and with the oncologist. MMODL / IJN: [id number] /
== END 2017-08-05 13:27 | disposition home or self-care (01) | DRG 987 ==
LOC: EC 13:23 → 6SEL 15:37
PROVIDERS: ADMIT Internal Medicine; ATTEND Internal Medicine
PROC: BW4FZZZ Ultrasonography of Neck (ICD-10-PCS; 2017-08-02)
PROC: 07B13ZX Excision of Right Neck Lymphatic, Percutaneous Approach, Diagnostic (ICD-10-PCS; principal; 2017-08-03)
DX: C34.90 Malignant neoplasm of unspecified part of unspecified bronchus or lung (principal); G93.41 Metabolic encephalopathy; E22.2 Syndrome of inappropriate secretion of antidiuretic hormone; E27.8 Other specified disorders of adrenal gland; E86.1 Hypovolemia; I48.0 Paroxysmal atrial fibrillation; K86.89 Other specified diseases of pancreas; I10 Essential (primary) hypertension; M19.90 Unspecified osteoarthritis, unspecified site; R59.0 Localized enlarged lymph nodes; Z77.090 Contact with and (suspected) exposure to asbestos; Z79.82 Long term (current) use of aspirin; Z79.899 Other long term (current) drug therapy; Z87.891 Personal history of nicotine dependence; Z89.9 Acquired absence of limb, unspecified; Z82.49 Family history of ischemic heart disease and other diseases of the circulatory system
CPT/HCPCS: 10022; 21550; 36415; 70450; 70553; 71020; 71260; 76536; 76942; 80048; 80053; 80306; 81001; 81003; 82550; 82553; 83735; 83930; 83935; 84133; 84295; 84300; 84484; 85025; 85610; 85730; 88173; 88305; 88341; 88342; 93005; 93306; 94640; 94760; 95819; 96360; 96361; 99285

== ENCOUNTER → 2017-08-20 | Outpatient (CLI) | payer MEDICARE, OTHER ==
--- NOTE | 2017-08-22 19:33 | PE ---
EXAMINATION TYPE: PET CT fusion skull to thigh DATE OF EXAM: 08/20/2017 CLINICAL HISTORY: 77-year-old male initial staging right lung cancer. TECHNIQUE: Following the intravenous administration of 14.05 mCi of F-18 FDG, whole body images are performed from the skull base to the midthigh. Images are reviewed on the computer in the coronal, axial, and sagittal planes. Reconstructed rotating images are created on independent workstation and reviewed on the computer. A localization and attenuation correction CT is performed in conjunction with the PET scan. Glucose level: 108 mg/dL COMPARISON: 08/01/2017 CT FINDINGS: PET: There is widespread disease. Focal hypermetabolism at the right lateral head along the superior aspect of the parotid gland, max S UV 6.4. Additional scattered small foci of increased FDG uptake is present in the head/neck such as t he left posterior occipital region likely representing a small lymph node and also in the left mastic ator space versus left mandibular ramus. Cervical lymphadenopathy measuring up to 2.8 cm, right greater than left, max SUV 7.9. Right supraclavicular lymphadenopathy measuring up to 2.5 cm, right greater than left axillary and millan bpectoral lymphadenopathy measuring up to 2.0 cm on the right, max SUV 9.9. Mediastinal lymphadenopathy extending from the thoracic inlet down to the ton, right hilum, general internal medicine doctor al mammary chains, paraesophageal, largest tristen mass in the right paratracheal region measuring 4.8 cm. Maximum SUV 10.5. The patient's right apical lesion measures 5.0 cm, max SUV 11.5. Peripheral right upper lobe 3.7 cm subpleural mass demonstrates max SUV 17.9. There is scattered pleural based thickening which has along the peripheral left upper lobe that shows associated hypermetabolism, axial image 116, max SUV 10.0 possibly extraosseous soft tissue relating to rib involvement. Approximately 7 small hypodense lesions are demonstrated within the liver, measuring up to 1.4 cm, ma x SUV 6.9. Right adrenal gland mass measuring 2.2 cm, max SUV 6.4. Diffuse enlargement of the left adrenal gland measures up to 3.0 x 2.7 cm, max SUV 29. Retrocrural lymphadenopathy measuring up to 9 mm, max SUV 5.5. Retroperitoneal lymphadenopathy measuring up to 1.5 cm short axis, maximal SUV 10.6. Lymphadenopathy tracks down along the left iliac chain measuring up to 1.5 cm, max SUV 11.5, and also involves the right external iliac chain measuring up to 1.2 cm, max SUV 9.7. Additional scattered mesenteric lymphadenopathy, for example, in the left lower abdomen axial image 2 14 measuring up to 1.3 cm, max SUV 6.7. Within the spine, many levels show increased FDG uptake either without clear CT abnormality or only s ubtle lucency and sclerosis. For example, C2 and C4 vertebral bodies, max SUV 8.5. There is moth-eate n appearance to the posterior elements of C4. Additional involvement of T2, T7, T8, T10, L2-L5. Max S UV 10.3 at L3 vertebral body. T12 vertebral compression deformity does not show significant uptake. Additional sites of osseous involvement include the sternal manubrium (max SUV 11.0), scattered throu ghout the ribs, left scapula (max SUV 4.9), inferior left humeral head, bilateral iliac bones (max MILLAN V 12.8) with mild permeative lucencies within the medial right iliac bone, upper sacrum, bilateral pu bic bones (max SUV 11.4) with subtle early permeative lucencies within the right pubic body, bilatera l ischium (max SUV 10.7), and bilateral proximal femurs where there is soft tissue replacement within the intramedullary cavity, max SUV 10.1. ATTENUATION CORRECTION CT: Intracranial structures show mild ventriculomegaly likely on the basis of central cerebral atrophy. N o midline shift or acute intracranial hemorrhage seen. Moderate to severe mucosal thickening within the ethmoid air cells and trace within the left maxillar y sinus. The heart is upper limits of normal in size without pericardial effusion. Coronary vessel calcificati ons are present in remarkable for coronary artery disease. Mild prostatic calcifications with convent ional arch vessel branching anatomy. Some calcified left hilar lymph nodes suggest prior granulomatou s disease. Mild bilateral gynecomastia. Moderate centrilobular emphysema and hazy areas of atelectasi s. Calcified granulomas within the spleen. 3.8 cm right renal cyst. Moderate prostatic calcifications wi thin the abdominal aorta and iliac arteries. No dilated small bowel, free fluid, or free air. Mild to moderate scattered stool. Bladder urine distended. Prominent stool distending the rectum up to 6.4 cm wide. No abnormal fluid c ollection in the pelvis. IMPRESSION: 1. 2 dominant right upper lobe masses measuring up to 5.0 cm. One of these probably represents the si te of primary disease. 2. Widespread metastatic disease throughout the head/neck, chest, abdomen, and pelvis as well as thro ughout the osseous structures. 3. Briefly, disease includes left occipital, cervical, right supraclavicular, right greater than left axillary, mediastinal, retrocrural, mesenteric, retroperitoneal, left iliac chain, and right externa l iliac chain lymphadenopathy. 4. Organ involvement includes the left greater than right adrenal glands and liver. 5. Osseous involvement includes multiple vertebrae throughout the cervical, thoracic, and lumbar spin e, upper sacrum, pelvis, left scapula and humeral head, scattered ribs, sternal manubrium, and proxim al femurs. Many lesions are not apparent by CT or show only subtle lucency/sclerosis. A few lesions s how early permeative destruction suggests posterior elements in the cervical spine, right pubic bone, and right iliac bone.
== END | disposition home or self-care (01) ==
LOC: RADPETMAIN 13:58
PROVIDERS: ATTEND Internal Medicine Hematology & Oncology
DX: C79.51 Secondary malignant neoplasm of bone (principal); C34.91 Malignant neoplasm of unspecified part of right bronchus or lung; C79.89 Secondary malignant neoplasm of other specified sites; R59.0 Localized enlarged lymph nodes
CPT/HCPCS: 78815; A9552